=== PATIENT | female | born 1985 | race Caucasian/White ===

== ENCOUNTER 2022-03-12 19:18 | Inpatient (IN) | payer SELFPAY ==
[2022-03-12 19:45] LABS: Hemoglobin 13.5 g/dL (12.0-16.0); Mean Corpuscular HGB CONC 32.4 g/dL (32.0-36.0); Mean Corpuscular Hemoglobin 30.4 pg (27.0-31.0); Mean Platelet Volume 7.3 fL (7.4-10.4); Platelet Count 352 thou/uL (130-400); RBC Distribution Width 13.8 % (11.5-14.5); Red Blood Cell (RBC) Count 4.44 mill/uL (4.20-5.40); White Blood Cell (WBC) Count 21.6 thou/uL (4.8-10.8)
[2022-03-12 19:49] LABS: Analyzer IN Cardio ER; Base Excess -22.4 mEq/L (-2.0 to +3.0); Calcium, Ionized (venous) 1.32 mmol/L (1.16-1.32); Chloride (VBG) 116 mmol/L (98-106); Hemoglobin (Hb) 14.1 g/dL (11.7-15.5); Potassium (VBG) 3.21 mmol/L (3.70-5.30); Sodium 143.2 mmol/L (133-146)
[2022-03-12] MEDS ORDERED: INSULIN REGULAR IN 0.9 % NACL 100 UNIT/100 ML BAG ONE (19:49)
[2022-03-12 19:50] LABS: Actual Bicarbonate (HCO3v) 6 mEq/L (22-28); pH (venous) 7.07 (7.32-7.43)
[2022-03-12 20:03] LABS: Band 7 % (5-11); Burr Cells SLIGHT = 2-5 cells (100X) (0-1/hpf); Lymphocytes 9 % (21-51); MDiff Complete? YES; Monocytes 11 % (0-10); Neutrophil 73 % (42-75); Platelet Morphology Comment Appears Adequate; Polychromasia SLIGHT = 2-3 cells (100X) (0-2/hpf)
[2022-03-12] MEDS ORDERED: D5 1/2 NS w/20 mEq KCL 1,000 ML ONE (20:09)
[2022-03-12 20:11] LABS: ALT (SGPT) 7 U/L (8-55); AST (SGOT) 6 U/L (5-34); Alkaline Phosphatase 59 U/L (40-110); BUN (Urea Nitrogen) 4 mg/dL (7.0-18.7); Bilirubin, Total 0.3 mg/dL (0.2-1.2); Calc. Creatinine Clearance 0 mL/min (70-130); Calcium 8.6 mg/dL (7.8-10.44); Chloride 119 mmol/L (98-107); Globulin 2.6 g/dL (2.4-3.5); Glucose 292 mg/dL (70-105); Potassium 3.1 mmol/L (3.5-5.1); Protein, Total 6.6 g/dL (6.0-8.3); Sodium 142 mmol/L (136-145)
[2022-03-12 20:17] LABS: Carbon Dioxide Less than 8 mmol/L (22-29); Phosphorus Less than 1.0 mg/dL (2.3-4.7)
[2022-03-12] MEDS ORDERED: Potassium Chloride 20 MEQ TAB ONE (20:53)
[2022-03-12] MEDS ORDERED: Sodium Chloride 0.9% 1,000 ML IV PRN ×8 (21:00→22:58)
[2022-03-12] MEDS ORDERED: Dextrose 5% in Water 1,000 ML IV PRN ×2 (21:00→23:00)
[2022-03-12] MEDS ORDERED: Dextrose 5 %-0.45 % NaCl 1,000 ML IV PRN ×2 (21:00→22:58)
[2022-03-12] MEDS ORDERED: NS 0.9% w/ 20 MEQ KCL 1,000 ML/1,000 ML BAG IV PRN ×4 (21:00→22:58)
[2022-03-12] MEDS ORDERED: HUMULIN R 100 UNITS in Sodium Chloride 0.9% 100 ML IVPB SCH ×2 (21:00→23:00)
[2022-03-12] MEDS ORDERED: Dextrose 50% Abboject 50 ML SYRINGE SLOW IVP PRN ×2 (21:00→23:00)
[2022-03-12] MEDS ORDERED: D5 1/2 NS w/20 mEq KCL 1,000 ML IV PRN (21:00)
[2022-03-12] MEDS ORDERED: Insulin Regular 300 UNITS/3 ML VIAL IVP SCH (21:00)
[2022-03-12] MEDS ORDERED: PHOS-NAK 1 PKT PACK PO SCH (21:00)
[2022-03-12] MEDS ORDERED: Electrolyte Replacement Protocol FS PRN (21:00)
[2022-03-12] MEDS ORDERED: Electrolyte Replacement Protocol 1 EACH FS SCH (21:15)
[2022-03-12] MEDS ORDERED: Potassium Phosphate 30 MMOL in Sodium Chloride 0.9% 250 ML 250 ML IVPB SCH (21:30)
[2022-03-12 22:03] LABS: BUN (Urea Nitrogen) 4 mg/dL (7.0-18.7); Calc. Creatinine Clearance 0 mL/min (70-130); Calcium 8.2 mg/dL (7.8-10.44); Chloride 117 mmol/L (98-107); Glucose 299 mg/dL (70-105); Sodium 137 mmol/L (136-145)
[2022-03-12 22:06] LABS: Carbon Dioxide Less than 8 mmol/L (22-29)
[2022-03-12] MEDS ORDERED: Ondansetron ODT 4 MG TAB PO PRN (22:42)
[2022-03-12] MEDS ORDERED: Acetaminophen 650 MG Suppository PR PRN (22:42)
[2022-03-12] MEDS ORDERED: Potassium Chloride 20 MEQ TAB PO SCH (22:45)
[2022-03-12] MEDS: Ondansetron PF 4 MG/2 ML Vial IVP PRN (23:01)
[2022-03-12] MEDS: Potassium Chloride 20 MEQ in Premix Bag 1 BAG IVPB SCH (23:54)
[2022-03-13] MEDS: Potassium Chloride 20 MEQ in Premix Bag 1 BAG IVPB SCH (01:48)
[2022-03-13] MEDS: D5 1/2 NS w/20 mEq KCL 1,000 ML IV PRN ×2 (02:33→06:07)
[2022-03-13 03:42] LABS: Hemoglobin A1c 11.6 % (4.0-6.0)
[2022-03-13 03:51] LABS: Anion Gap 9 mmol/L (10-20); BUN (Urea Nitrogen) Less than 4 mg/dL (7.0-18.7); Calc. Creatinine Clearance 100 mL/min (70-130); Calcium 8.2 mg/dL (7.8-10.44); Carbon Dioxide 12 mmol/L (22-29); Chloride 120 mmol/L (98-107); Glucose 256 mg/dL (70-105); Magnesium 1.6 mg/dL (1.6-2.6); Phosphorus 1.1 mg/dL (2.3-4.7); Potassium 3.5 mmol/L (3.5-5.1); Sodium 137 mmol/L (136-145)
[2022-03-13 04:05] LABS: Hemoglobin 11.8 g/dL (12.0-16.0); Mean Corpuscular HGB CONC 33.1 g/dL (32.0-36.0); Mean Corpuscular Hemoglobin 30.4 pg (27.0-31.0); Mean Corpuscular Volume 91.7 fL (78.0-98.0); Mean Platelet Volume 7.2 fL (7.4-10.4); Platelet Count 283 thou/uL (130-400); RBC Distribution Width 13.6 % (11.5-14.5); Red Blood Cell (RBC) Count 3.89 mill/uL (4.20-5.40); White Blood Cell (WBC) Count 17.8 thou/uL (4.8-10.8)
[2022-03-13] MEDS ORDERED: Potassium Phosphate 22 MMOL in Sodium Chloride 0.9% 250 ML 250 ML IVPB SCH (04:30)
[2022-03-13] MEDS ORDERED: Magnesium 2 GM/50 ML(in water) 2 GM in Premix Bag 1 BAG IVPB SCH (04:30)
[2022-03-13] MEDS ORDERED: Potassium Chloride 20 MEQ in Premix Bag 1 BAG IVPB SCH (04:30)
[2022-03-13 04:45] LABS: Band 15 % (5-11); Lymphocytes 9 % (21-51); MDiff Complete? YES; Monocytes 8 % (0-10); Neutrophil 68 % (42-75)
[2022-03-13 07:50] LABS: Anion Gap 8 mmol/L (10-20); BUN (Urea Nitrogen) Less than 4 mg/dL (7.0-18.7); Calc. Creatinine Clearance 106 mL/min (70-130); Calcium 8.4 mg/dL (7.8-10.44); Carbon Dioxide 12 mmol/L (22-29); Chloride 121 mmol/L (98-107); Glucose 187 mg/dL (70-105); Potassium 3.4 mmol/L (3.5-5.1); Sodium 138 mmol/L (136-145)
[2022-03-13] MEDS ORDERED: Potassium Chloride 20 MEQ TAB PO SCH (08:45)
[2022-03-13] MEDS: Enoxaparin Sodium 40 MG/0.4 ML SYRINGE SC SCH (09:28)
[2022-03-13] MEDS ORDERED: Sodium Chloride 0.9% 1,000 ML IV SCH (10:45)
[2022-03-13] MEDS ORDERED: Dextrose 50% Abboject 50 ML SYRINGE IVP PRN (10:45)
[2022-03-13] MEDS ORDERED: Dextrose 5% in Water 1,000 ML IV PRN (10:45)
[2022-03-13] MEDS ORDERED: Insulin Glargine 30 UNITS/0.3 ML VIAL SC SCH (10:45)
[2022-03-13 11:39] LABS: Anion Gap 12 mmol/L (10-20); BUN (Urea Nitrogen) Less than 4 mg/dL (7.0-18.7); Calc. Creatinine Clearance 113 mL/min (70-130); Calcium 8.1 mg/dL (7.8-10.44); Carbon Dioxide 8 mmol/L (22-29); Chloride 120 mmol/L (98-107); Glucose 133 mg/dL (70-105); Potassium 4.7 mmol/L (3.5-5.1); Sodium 135 mmol/L (136-145)
[2022-03-13] MEDS: Acetaminophen 325 MG TAB PO PRN ×3 (13:12→21:38)
[2022-03-13] MEDS ORDERED: Ketorolac Tromethamine 30 MG/ML VIAL IVP SCH (13:45)
[2022-03-13 13:47] VITALS: BMI 25.1
[2022-03-13] MEDS: Ondansetron PF 4 MG/2 ML Vial IVP PRN (17:18)
[2022-03-13] MEDS ORDERED: Lidocaine 5% Patch TD SCH (18:00)
[2022-03-13] MEDS: HumaLOG 300 UNITS/3 ML VIAL SC PRN ×2 (18:15→21:15)
[2022-03-14] MEDS ORDERED: Transdermal Patch Removal TOP SCH (06:00)
[2022-03-14] MEDS: Ondansetron PF 4 MG/2 ML Vial IVP PRN (06:01)
[2022-03-14] MEDS: Acetaminophen 325 MG TAB PO PRN (06:14)
[2022-03-14 06:17] LABS: #Lymphocytes 2.1 thou/uL (1.20-3.40); #Monocytes 0.8 thou/uL (0.11-0.59); #Neutrophils 5.2 thou/uL (1.40-6.50); %Basophils 0.5 % (0.0-1.0); %Eosinophils 0.5 % (0.0-10.0); %Lymphocytes 25.5 % (21.0-51.0); %Monocytes 9.7 % (0.0-10.0); %Neutrophils 63.7 % (42.0-75.0); Hemoglobin 11.8 g/dL (12.0-16.0); Mean Corpuscular HGB CONC 34.1 g/dL (32.0-36.0); Mean Corpuscular Hemoglobin 31.4 pg (27.0-31.0); Mean Platelet Volume 8.4 fL (7.4-10.4); Platelet Count 228 thou/uL (130-400); RBC Distribution Width 14.3 % (11.5-14.5); Red Blood Cell (RBC) Count 3.77 mill/uL (4.20-5.40); White Blood Cell (WBC) Count 8.1 thou/uL (4.8-10.8)
[2022-03-14 06:32] LABS: Anion Gap 12 mmol/L (10-20); BUN (Urea Nitrogen) Less than 4 mg/dL (7.0-18.7); Calc. Creatinine Clearance 131 mL/min (70-130); Carbon Dioxide 15 mmol/L (22-29); Chloride 110 mmol/L (98-107); Glucose 148 mg/dL (70-105); Sodium 134 mmol/L (136-145)
[2022-03-14 06:46] LABS: Potassium 2.9 mmol/L (3.5-5.1)
[2022-03-14] MEDS: Enoxaparin Sodium 40 MG/0.4 ML SYRINGE SC SCH (08:40)
[2022-03-14] MEDS: Potassium Chloride 20 MEQ TAB PO SCH ×2 (08:40→12:40)
[2022-03-14] MEDS ORDERED: Insulin Glargine 30 UNITS/0.3 ML VIAL SC SCH (09:00)
[2022-03-14] MEDS ORDERED: Potassium Chloride 20 MEQ TAB PO SCH (10:00)
[2022-03-14] MEDS: HumaLOG 300 UNITS/3 ML VIAL SC PRN (12:39)
[2022-03-14] MEDS ORDERED: Polyethylene Glycol 3350 17 GM Packet PO SCH (15:15)
[2022-03-14 16:48] VITALS: BP 118/80; TEMP 98.3
== END 2022-03-14 18:28 | disposition home or self-care (01) | DRG 639 ==
LOC: ERS 19:18 → CCU 20:35 → T4-A 03-13 13:54
PROVIDERS: ADMIT Internal Medicine; ATTEND Internal Medicine
DX: E11.10 Type 2 diabetes mellitus with ketoacidosis without coma (principal); Z20.822 Contact with and (suspected) exposure to COVID-19; E83.39 Other disorders of phosphorus metabolism; E83.42 Hypomagnesemia; F17.210 Nicotine dependence, cigarettes, uncomplicated; E87.6 Hypokalemia
CPT/HCPCS: 36415; 36416; 80048; 82010; 82805; 83036; 83735; 84100; 85025; 96365; 96366; 96375; J1650; J1815; J1885; J2405; J3475; J3480; J3490; J7050; Q0162

== ENCOUNTER 2022-10-13 01:56 | Inpatient (IN) | payer SELFPAY ==
[2022-10-13 02:44] LABS: Bacteria/HPF None Seen HPF (None Seen); Bilirubin Negative (Negative); Blood, Urine 2+ (Negative); Clarity Clear (Clear); Glucose, Urine (Dipstick) Greater than 1000 mg/dL (Negative); Ketone, Urine Greater than 150 mg/dL (Negative); Leukocyte Negative Leu/uL (Negative); Nitrite Negative (Negative); Protein, Urine (Dipstick) 50 mg/dL (Neg-Trace); RBC/HPF 0-3 HPF (0-3); Specific Gravity, Urine 1.017 (1.002-1.036); Squamous Epithelial 0-3 HPF (0-3); Urobilinogen Normal mg/dL (Less than 2); WBC/HPF 0-3 HPF (0-3)
[2022-10-13] MEDS ORDERED: Acetaminophen 325 MG TAB PO PRN (03:14)
[2022-10-13] MEDS ORDERED: Sodium Chloride 0.9% 1,000 ML IV PRN ×4 (03:14)
[2022-10-13] MEDS ORDERED: Electrolyte Replacement Protocol 1 EACH IVPB ONE (03:14)
[2022-10-13] MEDS ORDERED: Dextrose 5 %-0.45 % NaCl 1,000 ML IV PRN (03:14)
[2022-10-13] MEDS ORDERED: NS 0.9% w/ 20 MEQ KCL 1,000 ML IV PRN ×2 (03:14)
[2022-10-13] MEDS ORDERED: HUMULIN R 100 UNITS in Sodium Chloride 0.9% 100 ML IVPB SCH (03:15)
[2022-10-13 03:25] LABS: Hemoglobin 14.8 g/dL (12.0-16.0); Mean Corpuscular HGB CONC 31.6 g/dL (32.0-36.0); Mean Corpuscular Hemoglobin 30.2 pg (27.0-31.0); Mean Corpuscular Volume 95.6 fl (78.0-98.0); Mean Platelet Volume 7.6 fL (7.4-10.4); Platelet Count 389 10x3/uL (130-400); RBC Distribution Width 14.8 % (11.5-14.5)
[2022-10-13 03:29] LABS: ALT (SGPT) 46 U/L (8-55); AST (SGOT) 41 U/L (5-34); Albumin 4.9 g/dL (3.5-5.0); Alkaline Phosphatase 65 U/L (40-110); BUN (Urea Nitrogen) 14 mg/dL (7.0-18.7); Bilirubin, Total 0.2 mg/dL (0.2-1.2); Calc. Creatinine Clearance 0 mL/min (70-130); Calcium 9.2 mg/dL (7.8-10.44); Chloride 112 mmol/L (98-107); Estimated GFR 43; Globulin 3.7 g/dL (2.4-3.5); Glucose 229 mg/dL (70-105); Potassium 4.4 mmol/L (3.5-5.1); Protein, Total 8.6 g/dL (6.0-8.3); Sodium 137 mmol/L (136-145)
[2022-10-13] MEDS ORDERED: Electrolyte Replacement Protocol FS PRN (03:30)
[2022-10-13 03:32] LABS: Carbon Dioxide Less than 8 mmol/L (22-29)
[2022-10-13 03:45] LABS: Hemoglobin A1c Greater than 14.0 % (4.0-6.0)
[2022-10-13 03:46] LABS: Magnesium 2.2 mg/dL (1.6-2.6); Phosphorus 2.8 mg/dL (2.3-4.7)
[2022-10-13 04:11] LABS: Anisocytosis SLIGHT = 6-15 cells (100X) (0-5/hpf); Band 8 % (5-11); Hypochromia SLIGHT = 6-15 cells (100X) (0-5/hpf); Lymphocytes 23 % (21-51); MDiff Complete? YES; Monocytes 5 % (0-10); Neutrophil 63 % (42-75); Platelet Morphology Comment Appears Adequate; White Blood Cell (WBC) Count 24.6 10x3/uL (4.8-10.8)
[2022-10-13] MEDS: D5 1/2 NS w/20 mEq KCL 1,000 ML IV PRN ×5 (05:20→21:23)
[2022-10-13] MEDS: Ondansetron PF 4 MG/2 ML Vial IVP PRN ×3 (05:44→21:23)
[2022-10-13 06:28] LABS: Amphetamine Not Detected (NotDetected); Barbiturates Screen Not Detected (NotDetected); Benzodiazepine Screen Not Detected (NotDetected); Cocaine Metabolite Screen Not Detected (NotDetected); Methadone Not Detected (NotDetected); Methamphetamine Not Detected (NotDetected); Opiate Screen Not Detected (NotDetected); Oxycodone Screen Not Detected (NotDetected); Phencyclidine (PCP) Not Detected (NotDetected); THC/Cannabinoid Screen Detected (NotDetected); Tricyclic Screen Not Detected (NotDetected)
[2022-10-13 07:05] LABS: Anion Gap 18 mmol/L (10-20); BUN (Urea Nitrogen) 11 mg/dL (7.0-18.7); Calc. Creatinine Clearance 26 mL/min (70-130); Calcium 8.3 mg/dL (7.8-10.44); Chloride 111 mmol/L (98-107); Estimated GFR 64; Glucose 222 mg/dL (70-105); Potassium 3.5 mmol/L (3.5-5.1); Sodium 134 mmol/L (136-145)
[2022-10-13 07:10] LABS: Carbon Dioxide 9 mmol/L (22-29)
[2022-10-13] MEDS ORDERED: Sodium Bicarb 50 MEQ/50 ML VIAL IVP SCH (07:30)
[2022-10-13] MEDS: Enoxaparin Sodium 40 MG/0.4 ML SYRINGE SC SCH (08:09)
[2022-10-13 08:31] LABS: Base Excess (BEa) -11.5 mEq/L (-2.0 to +3.0); Calcium, Ionized (arterial) 1.26 mmol/L (1.12-1.30); Carboxyhemoglobin (COHb) 0.5 gm% (0.0-3.0); Hemoglobin (Hb) 12.5 g/dL (12.0-16.0); Potassium - ABG Lab 3.47 mmol/L (3.70-5.30); pH, Arterial 7.34 (7.35-7.45)
[2022-10-13 08:33] LABS: Actual Bicarbonate (HCO3a) 12.5 mEq/L (22-28)
[2022-10-13 08:34] LABS: Puncture Site RRA
[2022-10-13] MEDS ORDERED: Famotidine/PF 20 mg/2ml Vial SLOW IVP SCH (09:00)
[2022-10-13 10:36] LABS: Calcium 8.4 mg/dL (7.8-10.44); Chloride 112 mmol/L (98-107); Potassium 3.4 mmol/L (3.5-5.1); Sodium 132 mmol/L (136-145)
[2022-10-13 10:37] LABS: Glucose 218 mg/dL (70-105)
[2022-10-13 10:38] LABS: Anion Gap 10 mmol/L (10-20); Carbon Dioxide 13 mmol/L (22-29)
[2022-10-13 10:40] LABS: Calc. Creatinine Clearance 32 mL/min (70-130); Estimated GFR 80
[2022-10-13 10:41] LABS: BUN (Urea Nitrogen) 9 mg/dL (7.0-18.7)
[2022-10-13 12:16] LABS: Potassium 3.4 mmol/L (3.5-5.1)
[2022-10-13] MEDS: Potassium Chloride 20 MEQ in Premix Bag 1 BAG IVPB SCH (12:26)
[2022-10-13] MEDS ORDERED: Potassium Chloride 20 MEQ in Premix Bag 1 BAG IVPB SCH (13:00)
[2022-10-13 15:18] LABS: Anion Gap 7 mmol/L (10-20); BUN (Urea Nitrogen) 7 mg/dL (7.0-18.7); Calc. Creatinine Clearance 36 mL/min (70-130); Calcium 8.4 mg/dL (7.8-10.44); Carbon Dioxide 16 mmol/L (22-29); Chloride 112 mmol/L (98-107); Estimated GFR 94; Glucose 182 mg/dL (70-105); Lipase 73 U/L (8-78); Potassium 3.2 mmol/L (3.5-5.1); Sodium 132 mmol/L (136-145)
[2022-10-13] MEDS ORDERED: Potassium Phosphate 30 MMOL in Sodium Chloride 0.9% 500 ML IVPB SCH (16:00)
[2022-10-13 23:53] LABS: Phosphorus 1.9 mg/dL (2.3-4.7); Potassium 3.6 mmol/L (3.5-5.1)
[2022-10-14] MEDS: D5 1/2 NS w/20 mEq KCL 1,000 ML IV PRN ×2 (02:05→05:38)
[2022-10-14 04:22] LABS: #Lymphocytes 2.7 thou/uL (1.20-3.40); #Monocytes 0.8 thou/uL (0.11-0.59); #Neutrophils 5.9 thou/uL (1.40-6.50); %Basophils 0.4 % (0.0-1.0); %Eosinophils 0.4 % (0.0-10.0); %Lymphocytes 28.6 % (21.0-51.0); %Monocytes 8.6 % (0.0-10.0); %Neutrophils 62.1 % (42.0-75.0); Hemoglobin 11.7 g/dL (12.0-16.0); Mean Corpuscular HGB CONC 31.6 g/dL (32.0-36.0); Mean Corpuscular Hemoglobin 29.4 pg (27.0-31.0); Mean Platelet Volume 7.5 fL (7.4-10.4); Platelet Count 266 10x3/uL (130-400); RBC Distribution Width 14.9 % (11.5-14.5); Red Blood Cell (RBC) Count 3.98 mill/uL (4.20-5.40); White Blood Cell (WBC) Count 9.4 10x3/uL (4.8-10.8)
[2022-10-14 04:45] LABS: Phosphorus 1.5 mg/dL (2.3-4.7)
[2022-10-14 05:09] LABS: ALT (SGPT) 32 U/L (8-55); AST (SGOT) 40 U/L (5-34); Albumin 3.1 g/dL (3.5-5.0); Alkaline Phosphatase 43 U/L (40-110); Anion Gap 10 mmol/L (10-20); BUN (Urea Nitrogen) Less than 4 mg/dL (7.0-18.7); Bilirubin, Total 0.2 mg/dL (0.2-1.2); Calc. Creatinine Clearance 42 mL/min (70-130); Carbon Dioxide 12 mmol/L (22-29); Chloride 113 mmol/L (98-107); Estimated GFR 114; Globulin 2.5 g/dL (2.4-3.5); Glucose 237 mg/dL (70-105); Magnesium 1.6 mg/dL (1.6-2.6); Potassium 3.5 mmol/L (3.5-5.1); Protein, Total 5.6 g/dL (6.0-8.3); Sodium 131 mmol/L (136-145)
[2022-10-14] MEDS ORDERED: Potassium Phosphate 22 MMOL in Sodium Chloride 0.9% 250 ML 250 ML IVPB SCH (05:30)
[2022-10-14] MEDS: Ondansetron PF 4 MG/2 ML Vial IVP PRN ×2 (05:36→10:30)
[2022-10-14] MEDS ORDERED: Dextrose 5% in Water 1,000 ML IV PRN ×2 (08:37→12:13)
[2022-10-14] MEDS ORDERED: Dextrose 50% Abboject 50 ML SYRINGE SLOW IVP PRN ×2 (08:37→12:13)
[2022-10-14] MEDS ORDERED: HumaLOG 300 UNITS/3 ML VIAL SC PRN (08:37)
[2022-10-14] MEDS: Enoxaparin Sodium 40 MG/0.4 ML SYRINGE SC SCH (08:52)
[2022-10-14] MEDS: Famotidine 20 MG TAB PO SCH ×2 (08:52→20:49)
[2022-10-14] MEDS ORDERED: Magnesium 2 GM/50 ML(in water) 2 GM in Premix Bag 1 BAG IVPB SCH (09:00)
[2022-10-14] MEDS ORDERED: Potassium Chloride 8 MEQ in Sodium Chloride 0.9% 100 ML IVPB SCH (09:00)
[2022-10-14] MEDS ORDERED: HumuLIN 70/30 (300 UNITS/3 ML VIAL) SC SCH (09:00)
[2022-10-14] MEDS: HumuLIN 70/30 (300 UNITS/3 ML VIAL) SC SCH ×2 (11:37→16:54)
[2022-10-14] MEDS ORDERED: Insulin Regular 300 UNITS/3 ML VIAL SC PRN (12:13)
[2022-10-15 06:45] LABS: #Basophils 0.1 thou/uL (0.0-0.2); #Eosinphils 0.1 thou/uL (0.0-0.7); #Lymphocytes 3.3 thou/uL (1.20-3.40); #Monocytes 0.7 thou/uL (0.11-0.59); #Neutrophils 3.3 thou/uL (1.40-6.50); %Basophils 1.1 % (0.0-1.0); %Eosinophils 0.9 % (0.0-10.0); %Lymphocytes 44.4 % (21.0-51.0); %Monocytes 9.4 % (0.0-10.0); %Neutrophils 44.2 % (42.0-75.0); Hemoglobin 12.4 g/dL (12.0-16.0); Mean Corpuscular HGB CONC 31.5 g/dL (32.0-36.0); Mean Corpuscular Hemoglobin 29.1 pg (27.0-31.0); Mean Corpuscular Volume 92.3 fl (78.0-98.0); Mean Platelet Volume 7.6 fL (7.4-10.4); Platelet Count 305 10x3/uL (130-400); RBC Distribution Width 15.2 % (11.5-14.5); Red Blood Cell (RBC) Count 4.27 mill/uL (4.20-5.40); White Blood Cell (WBC) Count 7.4 10x3/uL (4.8-10.8)
[2022-10-15 07:03] LABS: ALT (SGPT) 47 U/L (8-55); AST (SGOT) 52 U/L (5-34); Albumin 3.3 g/dL (3.5-5.0); Alkaline Phosphatase 53 U/L (40-110); Anion Gap 11 mmol/L (10-20); BUN (Urea Nitrogen) Less than 4 mg/dL (7.0-18.7); Bilirubin, Total 0.4 mg/dL (0.2-1.2); Calc. Creatinine Clearance 39 mL/min (70-130); Calcium 8.5 mg/dL (7.8-10.44); Carbon Dioxide 23 mmol/L (22-29); Chloride 107 mmol/L (98-107); Estimated GFR 103; Globulin 2.6 g/dL (2.4-3.5); Glucose 243 mg/dL (70-105); Magnesium 1.9 mg/dL (1.6-2.6); Potassium 3.4 mmol/L (3.5-5.1); Protein, Total 5.9 g/dL (6.0-8.3); Sodium 138 mmol/L (136-145)
[2022-10-15 07:12] LABS: Phosphorus 3.1 mg/dL (2.3-4.7)
[2022-10-15] MEDS: Famotidine 20 MG TAB PO SCH (08:27)
[2022-10-15] MEDS: Enoxaparin Sodium 40 MG/0.4 ML SYRINGE SC SCH (08:28)
[2022-10-15] MEDS: HumuLIN 70/30 (300 UNITS/3 ML VIAL) SC SCH ×2 (08:28→12:03)
[2022-10-15] MEDS ORDERED: Enoxaparin Sodium 30 MG/0.3 ML SYRINGE SC SCH (09:00)
[2022-10-15] MEDS ORDERED: Famotidine 20 MG TAB PO SCH (09:00)
[2022-10-15] MEDS ORDERED: Magnesium 2 GM/50 ML(in water) 2 GM in Premix Bag 1 BAG IVPB SCH (09:00)
[2022-10-15] MEDS ORDERED: Potassium Chloride 20 MEQ TAB PO SCH (09:00)
[2022-10-15 14:58] VITALS: BP 121/81; TEMP 97.7
[2022-10-16] MEDS ORDERED: FLU VACC QS2022-23(6MOS UP)/PF 60 MCG/0.5 ML SYRINGE IM ONE (09:00)
== END 2022-10-15 15:00 | disposition home or self-care (01) | DRG 638 ==
LOC: ERS 01:56 → ERHOLD 02:59 → CCU 04:56 → T4-A 10-14 14:06
PROVIDERS: ADMIT Internal Medicine; ATTEND Internal Medicine
DX: E10.10 Type 1 diabetes mellitus with ketoacidosis without coma (principal); N17.9 Acute kidney failure, unspecified; I10 Essential (primary) hypertension; F12.10 Cannabis abuse, uncomplicated; E10.42 Type 1 diabetes mellitus with diabetic polyneuropathy; F17.210 Nicotine dependence, cigarettes, uncomplicated; E87.5 Hyperkalemia; D72.829 Elevated white blood cell count, unspecified; Z71.6 Tobacco abuse counseling; Z79.899 Other long term (current) drug therapy; Z79.4 Long term (current) use of insulin; Z98.51 Tubal ligation status; Z98.890 Other specified postprocedural states; Z71.51 Drug abuse counseling and surveillance of drug abuser
CPT/HCPCS: 36415; 36416; 36600; 80053; 80306; 81003; 81015; 82805; 83036; 83690; 83735; 84100; 85025; 99285; J1650; J1815; J2405; J3475; J3480; J3490; J7030; J7050; S0028

== ENCOUNTER 2022-11-17 10:27 | Inpatient (IN) | payer SELFPAY ==
[2022-11-17] MEDS ORDERED: Ondansetron PF 4 MG/2 ML Vial ONE ×2 (11:05→11:42)
[2022-11-17 11:16] LABS: Hemoglobin 15.4 g/dL (12.0-16.0); Mean Corpuscular HGB CONC 30.8 g/dL (32.0-36.0); Mean Corpuscular Hemoglobin 29.5 pg (27.0-31.0); Mean Corpuscular Volume 95.6 fl (78.0-98.0); Platelet Count 582 10x3/uL (130-400); RBC Distribution Width 14.3 % (11.5-14.5); Red Blood Cell (RBC) Count 5.22 mill/uL (4.20-5.40); White Blood Cell (WBC) Count 28.7 10x3/uL (4.8-10.8)
[2022-11-17 11:19] LABS: Base Excess -24.3 mEq/L (-2.0 to +3.0); Calcium, Ionized (venous) 1.24 mmol/L (1.16-1.32); Chloride (VBG) 104 mmol/L (98-106); Hemoglobin (Hb) 16.4 g/dL (11.7-15.5); Potassium (VBG) 5.36 mmol/L (3.70-5.30); Sodium 139.1 mmol/L (133-146)
[2022-11-17 11:20] LABS: Actual Bicarbonate (HCO3v) 4 mEq/L (22-28); pH (venous) 7.05 (7.32-7.43)
[2022-11-17 11:27] LABS: BHCG - Serum Negative (NEGATIVE); Pregs Control Background? CLEAR/WHITE (CLR/WHITE); Pregs Control Bar Appear? YES (CONTROL BAR)
[2022-11-17 11:29] LABS: Magnesium 2.5 mg/dL (1.6-2.6)
[2022-11-17 11:31] LABS: ALT (SGPT) 25 U/L (8-55); AST (SGOT) 37 U/L (5-34); Albumin 5.4 g/dL (3.5-5.0); Alkaline Phosphatase 80 U/L (40-110); BUN (Urea Nitrogen) 15 mg/dL (7.0-18.7); Bilirubin, Total 0.2 mg/dL (0.2-1.2); Calc. Creatinine Clearance 0 mL/min (70-130); Calcium 10.2 mg/dL (7.8-10.44); Chloride 103 mmol/L (98-107); Estimated GFR 44; Globulin 4.3 g/dL (2.4-3.5); Lipase 25 U/L (8-78); Phosphorus 6.7 mg/dL (2.3-4.7); Potassium 5.2 mmol/L (3.5-5.1); Protein, Total 9.7 g/dL (6.0-8.3); Sodium 136 mmol/L (136-145)
[2022-11-17] MEDS ORDERED: Morphine 4 MG/ML VIAL ONE (11:42)
[2022-11-17] MEDS ORDERED: Pantoprazole 40 MG VIAL ONE (11:42)
[2022-11-17 11:47] LABS: Band 30 % (5-11); Lymphocytes 11 % (21-51); MDiff Complete? YES; Monocytes 4 % (0-10); Neutrophil 55 % (42-75); Platelet Morphology Comment Appears Increased; RBC Morphology Normal
[2022-11-17 11:51] LABS: Carbon Dioxide Less than 8 mmol/L (22-29); Glucose 536 mg/dL (70-105)
[2022-11-17] MEDS ORDERED: INSULIN REGULAR IN 0.9 % NACL 100 UNIT/100 ML BAG ONE (11:59)
[2022-11-17 13:09] LABS: Bacteria/HPF None Seen HPF (None Seen); Bilirubin Negative (Negative); Blood, Urine Trace (Negative); Clarity Clear (Clear); Glucose, Urine (Dipstick) Greater than 1000 mg/dL (Negative); Ketone, Urine Greater than 150 mg/dL (Negative); Leukocyte Negative Leu/uL (Negative); Nitrite Negative (Negative); Protein, Urine (Dipstick) 30 mg/dL (Neg-Trace); RBC/HPF 0-3 HPF (0-3); Specific Gravity, Urine 1.023 (1.002-1.036); Squamous Epithelial 0-3 HPF (0-3); Urobilinogen Normal mg/dL (Less than 2); WBC/HPF 0-3 HPF (0-3)
[2022-11-17] MEDS ORDERED: Sodium Chloride 0.9% 1,000 ML IV PRN ×4 (13:34)
[2022-11-17] MEDS ORDERED: NS 0.9% w/ 20 MEQ KCL 1,000 ML IV PRN ×2 (13:34)
[2022-11-17] MEDS ORDERED: Dextrose 5 %-0.45 % NaCl 1,000 ML IV PRN (13:34)
[2022-11-17] MEDS ORDERED: Electrolyte Replacement Protocol 1 EACH IVPB SCH (13:34)
[2022-11-17] MEDS ORDERED: HUMULIN R 100 UNITS in Sodium Chloride 0.9% 100 ML IVPB SCH (13:45)
[2022-11-17] MEDS ORDERED: Cefepime 2 GM VIAL ONE (13:56)
[2022-11-17 14:23] LABS: Lactic Acid 2.7 mmol/L (0.5-2.2)
[2022-11-17 14:31] LABS: Troponin I Less than 0.010 ng/mL (< 0.028)
[2022-11-17 15:06] LABS: SARS-CoV-2 NAA Rapid Test Not Detected (NotDetected)
[2022-11-17 15:34] LABS: ALT (SGPT) 16 U/L (8-55); AST (SGOT) 24 U/L (5-34); Albumin 4.3 g/dL (3.5-5.0); Alkaline Phosphatase 59 U/L (40-110); BUN (Urea Nitrogen) 11 mg/dL (7.0-18.7); Bilirubin, Total Less than 0.2 mg/dL (0.2-1.2); Calc. Creatinine Clearance 0 mL/min (70-130); Calcium 8.1 mg/dL (7.8-10.44); Carbon Dioxide Less than 8 mmol/L (22-29); Chloride 118 mmol/L (98-107); Estimated GFR 67; Globulin 3.1 g/dL (2.4-3.5); Glucose 229 mg/dL (70-105); Potassium 4.9 mmol/L (3.5-5.1); Protein, Total 7.4 g/dL (6.0-8.3); Sodium 139 mmol/L (136-145)
[2022-11-17] MEDS ORDERED: Vancomycin 1 GM/200 ML (FROZEN) BAG ONE (15:49)
[2022-11-17] MEDS ORDERED: Morphine 2 MG/ML VIAL SLOW IVP PRN (15:54)
[2022-11-17] MEDS ORDERED: Dextrose 50% Abboject 50 ML SYRINGE ONE (16:38)
[2022-11-17 18:02] LABS: Anion Gap 16 mmol/L (10-20); BUN (Urea Nitrogen) 9 mg/dL (7.0-18.7); Calc. Creatinine Clearance 0 mL/min (70-130); Calcium 7.8 mg/dL (7.8-10.44); Chloride 113 mmol/L (98-107); Estimated GFR 67; Glucose 288 mg/dL (70-105); Potassium 4.4 mmol/L (3.5-5.1); Sodium 133 mmol/L (136-145)
[2022-11-17 18:04] LABS: Carbon Dioxide 8 mmol/L (22-29)
[2022-11-17 18:08] LABS: Troponin I Less than 0.010 ng/mL (< 0.028)
[2022-11-17] MEDS: D5 1/2 NS w/20 mEq KCL 1,000 ML IV PRN ×2 (18:14→22:27)
[2022-11-17] MEDS: cefTRIAXone\\ROCEPHIN 1 GM in Sodium Chloride 0.9% 100 ML IVPB SCH (18:14)
[2022-11-17] MEDS: Promethazine HCl 12.5 MG in Sodium Chloride 0.9% 50 ML IVPB PRN (20:04)
[2022-11-17 22:38] LABS: Anion Gap 11 mmol/L (10-20); BUN (Urea Nitrogen) 6 mg/dL (7.0-18.7); Calc. Creatinine Clearance 75 mL/min (70-130); Calcium 7.9 mg/dL (7.8-10.44); Carbon Dioxide 13 mmol/L (22-29); Chloride 111 mmol/L (98-107); Estimated GFR 87; Glucose 245 mg/dL (70-105); Potassium 3.6 mmol/L (3.5-5.1); Sodium 131 mmol/L (136-145)
[2022-11-18] MEDS: D5 1/2 NS w/20 mEq KCL 1,000 ML IV PRN ×2 (02:08→06:12)
[2022-11-18 07:41] LABS: Anion Gap 8 mmol/L (10-20); BUN (Urea Nitrogen) 4 mg/dL (7.0-18.7); Calc. Creatinine Clearance 96 mL/min (70-130); Calcium 8.1 mg/dL (7.8-10.44); Carbon Dioxide 17 mmol/L (22-29); Chloride 110 mmol/L (98-107); Estimated GFR 114; Glucose 162 mg/dL (70-105); Potassium 3.2 mmol/L (3.5-5.1); Sodium 132 mmol/L (136-145)
[2022-11-18] MEDS: Promethazine HCl 12.5 MG in Sodium Chloride 0.9% 50 ML IVPB PRN ×2 (08:04→21:58)
[2022-11-18] MEDS ORDERED: Potassium Chloride 20 MEQ TAB PO SCH (09:00)
[2022-11-18] MEDS ORDERED: HumuLIN 70/30 (300 UNITS/3 ML VIAL) SC SCH (11:15)
[2022-11-18 13:14] VITALS: BMI 20.8
[2022-11-18] MEDS ORDERED: Iopamidol-370 76% 500 ML 1 ML ONE (13:14)
[2022-11-18 15:51] LABS: Anion Gap 10 mmol/L (10-20); BUN (Urea Nitrogen) Less than 4 mg/dL (7.0-18.7); Calc. Creatinine Clearance 92 mL/min (70-130); Carbon Dioxide 19 mmol/L (22-29); Chloride 107 mmol/L (98-107); Estimated GFR 108; Glucose 157 mg/dL (70-105); Potassium 3.5 mmol/L (3.5-5.1); Sodium 132 mmol/L (136-145)
[2022-11-18] MEDS: cefTRIAXone\\ROCEPHIN 1 GM in Sodium Chloride 0.9% 100 ML IVPB SCH (16:33)
[2022-11-18] MEDS ORDERED: Dextrose 50% Abboject 50 ML SYRINGE IVP PRN (17:30)
[2022-11-18] MEDS ORDERED: Dextrose 5% in Water 1,000 ML IV PRN (17:30)
[2022-11-18] MEDS ORDERED: Insulin Regular 300 UNITS/3 ML VIAL SC PRN (17:30)
[2022-11-18] MEDS: HumuLIN 70/30 (300 UNITS/3 ML VIAL) SC SCH (20:02)
[2022-11-19 06:33] LABS: Anion Gap 14 mmol/L (10-20); BUN (Urea Nitrogen) 5 mg/dL (7.0-18.7); Calc. Creatinine Clearance 92 mL/min (70-130); Calcium 8.3 mg/dL (7.8-10.44); Carbon Dioxide 17 mmol/L (22-29); Chloride 108 mmol/L (98-107); Estimated GFR 105; Glucose 265 mg/dL (70-105); Potassium 3.7 mmol/L (3.5-5.1); Sodium 135 mmol/L (136-145)
[2022-11-19] MEDS: HumuLIN 70/30 (300 UNITS/3 ML VIAL) SC SCH (09:02)
[2022-11-19] MEDS: Promethazine HCl 12.5 MG in Sodium Chloride 0.9% 50 ML IVPB PRN (13:12)
[2022-11-19] MEDS: cefTRIAXone\\ROCEPHIN 1 GM in Sodium Chloride 0.9% 100 ML IVPB SCH (13:12)
[2022-11-19 16:25] VITALS: TEMP 98.6
== END 2022-11-19 20:25 | disposition home or self-care (01) | DRG 638 ==
LOC: ERS 10:27 → ERHOLD 13:07 → IMCU/EMU 17:47
PROVIDERS: ADMIT Internal Medicine; ATTEND Hospitalist
DX: E10.10 Type 1 diabetes mellitus with ketoacidosis without coma (principal); N17.9 Acute kidney failure, unspecified; Z20.822 Contact with and (suspected) exposure to COVID-19; F17.210 Nicotine dependence, cigarettes, uncomplicated; Z79.4 Long term (current) use of insulin; Z79.899 Other long term (current) drug therapy; Z98.51 Tubal ligation status
CPT/HCPCS: 36415; 36416; 71045; 74177; 76705; 80048; 80053; 81003; 81015; 82010; 82805; 83605; 83690; 83735; 84100; 84484; 84703; 85025; 87040; 87086; 93005; C9113; J0692; J0696; J1815; J2270; J2272; J2405; J2550; J3370-JW; J3480; J3490; J7999; Q9967

== ENCOUNTER 2023-10-17 17:06 | Inpatient (IN) | payer OTHER, SELFPAY ==
[2023-10-17] MEDS ORDERED: Ondansetron PF 4 MG/2 ML Vial ONE (17:41)
[2023-10-17 17:45] LABS: Hematocrit 46.7 % (36.0-47.0); Hemoglobin 14.3 g/dL (12.0-16.0); Manual Diff?? YES; Mean Corpuscular HGB CONC 30.6 g/dL (32.0-36.0); Mean Corpuscular Hemoglobin 30.9 pg (27.0-31.0); Mean Corpuscular Volume 100.9 fl (78.0-98.0); Mean Platelet Volume 9.5 fL (7.4-10.4); Platelet Count 535 10x3/uL (130-400); RBC Distribution Width 13.3 % (11.5-14.5); Red Blood Cell (RBC) Count 4.63 mill/uL (4.20-5.40); White Blood Cell (WBC) Count 25.3 10x3/uL (4.8-10.8)
[2023-10-17 17:54] LABS: Delete Auto Diff?? YES
[2023-10-17 18:10] LABS: Troponin I Less than 0.010 ng/mL (< 0.028)
[2023-10-17 18:14] LABS: ALT (SGPT) 31 U/L (8-55); AST (SGOT) 38 U/L (5-34); Albumin 4.9 g/dL (3.5-5.0); Alkaline Phosphatase 72 U/L (40-110); BUN (Urea Nitrogen) 12 mg/dL (7.0-18.7); Bilirubin, Total Less than 0.2 mg/dL (0.2-1.2); Calc. Creatinine Clearance 0 mL/min (70-130); Calcium 9.5 mg/dL (7.8-10.44); Chloride 114 mmol/L (98-107); Estimated GFR 63; Globulin 3.3 g/dL (2.4-3.5); Glucose 222 mg/dL (70-105); Lipase 25 U/L (8-78); Potassium 5.6 mmol/L (3.5-5.1); Protein, Total 8.2 g/dL (6.0-8.3); Sodium 138 mmol/L (136-145)
[2023-10-17 18:21] LABS: Carbon Dioxide Less than 8 mmol/L (22-29)
[2023-10-17] MEDS ORDERED: diphenhydrAMINE 50 MG/ML VIAL ONE (18:26)
[2023-10-17] MEDS ORDERED: Haloperidol Lactate 5 MG/ML VIAL ONE (18:27)
[2023-10-17] MEDS ORDERED: Metoclopramide HCl 10 MG/2 ML VIAL ONE (18:27)
[2023-10-17 18:31] LABS: BHCG - Serum Negative (NEGATIVE); Pregs Control Background? CLEAR/WHITE (CLR/WHITE); Pregs Control Bar Appear? YES (CONTROL BAR)
[2023-10-17 18:32] LABS: Analyzer IN Cardio ER; Base Excess -26.1 mEq/L (-2.0 to +3.0); Calcium, Ionized (venous) 1.26 mmol/L (1.16-1.32); Chloride (VBG) 113 mmol/L (98-106); Hematocrit-VBG 44 % (36.0-47.0); Hemoglobin (Hb) 15.1 g/dL (11.7-15.5); Potassium (VBG) 5.42 mmol/L (3.70-5.30); Sodium 145 mmol/L (133-146)
[2023-10-17 18:32] LABS: Band 5 % (5-11); Burr Cells SLIGHT = 2-5 cells HPF (0-1); CellaVision Operator ID LAB.KB; Large Platelets 5.9 % (0-5); Lymphocytes 3 % (21-51); Macrocytosis SLIGHT = 6-15 cells HPF (0-5); Neutrophil 89 % (42-75); Platelet Adequacy Comment Platelets Increased; Reactive Lymphocytes 3 % (0-10); Total Cell Count 102
[2023-10-17] MEDS ORDERED: Sodium Bicarb 50 MEQ/50 ML VIAL ONE (18:51)
[2023-10-17 19:14] LABS: Bacteria/HPF 1+ HPF (None Seen); Bilirubin Negative (Negative); Blood, Urine 1+ (Negative); CAUTI Indications for Culture Pelvic or flank pain; Clarity Clear (Clear); Glucose, Urine (Dipstick) Greater than 1000 mg/dL (Negative); Ketone, Urine Greater than 150 mg/dL (Negative); Leukocyte Negative Leu/uL (Negative); Nitrite Negative (Negative); Protein, Urine (Dipstick) 70 mg/dL (Neg-Trace); RBC/HPF 0-3 HPF (0-3); Specific Gravity, Urine 1.018 (1.002-1.036); Squamous Epithelial 0-3 HPF (0-3); Urine Culture Reflex No No; Urobilinogen Normal mg/dL (Less than 2); WBC/HPF 0-3 HPF (0-3)
[2023-10-17 19:16] LABS: Acetaminophen Less than 10 mcg/mL (10.0-30.0); Alcohol Less than 10.0 mg/dL (Less than 10); Salicylate Less than 8.0 mg/dL (15.0-30.0)
[2023-10-17 19:20] LABS: Amphetamine Not Detected (NotDetected); Barbiturates Screen Not Detected (NotDetected); Benzodiazepine Screen Not Detected (NotDetected); Cocaine Metabolite Screen Not Detected (NotDetected); Methadone Not Detected (NotDetected); Methamphetamine Not Detected (NotDetected); Opiate Screen Not Detected (NotDetected); Oxycodone Screen Not Detected (NotDetected); Phencyclidine (PCP) Not Detected (NotDetected); THC/Cannabinoid Screen Detected (NotDetected); Tricyclic Screen Not Detected (NotDetected)
[2023-10-17] MEDS ORDERED: Sodium Chloride 0.9% 1,000 ML IV PRN ×4 (19:34)
[2023-10-17] MEDS ORDERED: Electrolyte Replacement Protocol 1 EACH IVPB PRN (19:34)
[2023-10-17] MEDS ORDERED: Dextrose 50% Abboject 50 ML SYRINGE SLOW IVP PRN (19:34)
[2023-10-17] MEDS ORDERED: Dextrose 5 %-0.45 % NaCl 1,000 ML IV PRN (19:34)
[2023-10-17] MEDS ORDERED: NS 0.9% w/ 20 MEQ KCL 1,000 ML IV PRN ×2 (19:34)
[2023-10-17] MEDS ORDERED: HUMULIN R 100 UNITS in Sodium Chloride 0.9% 100 ML IVPB SCH (19:45)
[2023-10-17] MEDS ORDERED: INSULIN REGULAR IN 0.9 % NACL 100 UNITS/100 ML BAG ONE (20:16)
[2023-10-17 20:25] LABS: SARS-CoV-2 NAA Rapid Test Not Detected (NotDetected)
[2023-10-17 20:27] LABS: Actual Bicarbonate (HCO3v) 5.1 mEq/L (22-28)
[2023-10-17 21:17] LABS: Calcium 8.6 mg/dL (7.8-10.44); Chloride 114 mmol/L (98-107); Phosphorus 3.6 mg/dL (2.3-4.7); Potassium 5.4 mmol/L (3.5-5.1); Sodium 138 mmol/L (136-145)
[2023-10-17 21:26] LABS: Calc. Creatinine Clearance 0 mL/min (70-130); Estimated GFR 77
[2023-10-17 21:37] LABS: Glucose 228 mg/dL (70-105)
[2023-10-17 21:41] LABS: BUN (Urea Nitrogen) 11 mg/dL (7.0-18.7)
[2023-10-17 21:43] LABS: Carbon Dioxide Less than 8 mmol/L (22-29)
[2023-10-17] MEDS ORDERED: Ondansetron ODT 4 MG TAB PO PRN (22:00)
[2023-10-17] MEDS ORDERED: Acetaminophen 325 MG TAB PO PRN (22:00)
[2023-10-17] MEDS ORDERED: Calcium Carbonate 500 MG ChewTAB PO PRN (22:00)
[2023-10-17] MEDS ORDERED: Ondansetron PF 4 MG/2 ML Vial IVP PRN (22:00)
[2023-10-17] MEDS ORDERED: Magnesium 2 GM/50 ML(in water) 2 GM in Premix 1 BAG IVPB SCH (23:00)
[2023-10-18 00:31] LABS: Anion Gap 15 mmol/L (10-20); BUN (Urea Nitrogen) 6 mg/dL (7.0-18.7); Calc. Creatinine Clearance 0 mL/min (70-130); Calcium 8.4 mg/dL (7.8-10.44); Chloride 112 mmol/L (98-107); Estimated GFR 84; Glucose 163 mg/dL (70-105); Potassium 3.3 mmol/L (3.5-5.1); Sodium 133 mmol/L (136-145)
[2023-10-18 00:34] LABS: Carbon Dioxide 9 mmol/L (22-29)
[2023-10-18] MEDS: D5 1/2 NS w/20 mEq KCL 1,000 ML IV PRN ×3 (01:30→09:09)
[2023-10-18] MEDS: Potassium Chloride 20 MEQ in Premix 1 BAG IVPB SCH ×2 (01:31→04:43)
[2023-10-18 03:48] LABS: #Basophils 0.1 thou/uL (0.0-0.2); #Monocytes 2.8 thou/uL (0.11-0.59); #Neutrophils 17.2 thou/uL (1.40-6.50); %Basophils 0.2 % (0.0-1.0); %Lymphocytes 16.3 % (21.0-51.0); %Monocytes 11.7 % (0.0-10.0); %Neutrophils 71.2 % (42.0-75.0); Hemoglobin 11.7 g/dL (12.0-16.0); Mean Corpuscular HGB CONC 32.4 g/dL (32.0-36.0); Mean Corpuscular Hemoglobin 31.1 pg (27.0-31.0); Mean Platelet Volume 9.2 fL (7.4-10.4); RBC Distribution Width 13.3 % (11.5-14.5); Red Blood Cell (RBC) Count 3.76 mill/uL (4.20-5.40); White Blood Cell (WBC) Count 24.2 10x3/uL (4.8-10.8)
[2023-10-18 04:13] LABS: Anion Gap 12 mmol/L (10-20); BUN (Urea Nitrogen) 5 mg/dL (7.0-18.7); Calc. Creatinine Clearance 77 mL/min (70-130); Calcium 8.3 mg/dL (7.8-10.44); Carbon Dioxide 11 mmol/L (22-29); Chloride 112 mmol/L (98-107); Estimated GFR 92; Glucose 143 mg/dL (70-105); Sodium 131 mmol/L (136-145)
[2023-10-18 04:15] LABS: Hematocrit 36.1 % (36.0-47.0); Platelet Count 424 10x3/uL (130-400)
[2023-10-18] MEDS: Famotidine 20 MG TAB PO SCH ×2 (08:39→20:58)
[2023-10-18] MEDS: Famotidine/PF 20 mg/2ml Vial SLOW IVP SCH ×2 (08:39→20:59)
[2023-10-18] MEDS ORDERED: Famotidine/PF 20 mg/2ml Vial SLOW IVP SCH (09:00)
[2023-10-18] MEDS ORDERED: Dextrose 50% Abboject 50 ML SYRINGE SLOW IVP PRN (09:56)
[2023-10-18] MEDS ORDERED: Dextrose 5% in Water 1,000 ML IV PRN (09:56)
[2023-10-18] MEDS ORDERED: Glucagon 1 MG/ML KIT IM PRN (09:56)
[2023-10-18] MEDS ORDERED: HumaLOG 300 UNITS/3 ML VIAL SC PRN ×2 (09:56)
[2023-10-18 19:56] LABS: Chloride 104 mmol/L (98-107); Potassium 3.7 mmol/L (3.5-5.1); Sodium 132 mmol/L (136-145)
[2023-10-18 19:57] LABS: Calcium 8.5 mg/dL (7.8-10.44); Glucose 272 mg/dL (70-105)
[2023-10-18 19:59] LABS: Anion Gap 15 mmol/L (10-20); Carbon Dioxide 17 mmol/L (22-29)
[2023-10-18 20:00] LABS: Calc. Creatinine Clearance 60 mL/min (70-130); Estimated GFR 68
[2023-10-18 20:01] LABS: BUN (Urea Nitrogen) 6 mg/dL (7.0-18.7)
[2023-10-18] MEDS ORDERED: HumuLIN 70/30 100 Unit/ ml 10 ml Vial SC SCH (21:00)
[2023-10-18] MEDS: HumuLIN 70/30 100 Unit/ ml 10 ml Vial SC SCH (21:00)
[2023-10-19 05:15] LABS: #Basophils 0.1 thou/uL (0.0-0.2); #Monocytes 0.9 thou/uL (0.11-0.59); #Neutrophils 4.3 thou/uL (1.40-6.50); %Basophils 0.6 % (0.0-1.0); %Eosinophils 0.4 % (0.0-10.0); %Lymphocytes 36.6 % (21.0-51.0); %Monocytes 10.7 % (0.0-10.0); %Neutrophils 51.5 % (42.0-75.0); Hematocrit 35.5 % (36.0-47.0); Hemoglobin 11.9 g/dL (12.0-16.0); Mean Corpuscular HGB CONC 33.5 g/dL (32.0-36.0); Mean Corpuscular Hemoglobin 30.4 pg (27.0-31.0); Mean Corpuscular Volume 90.8 fl (78.0-98.0); Mean Platelet Volume 9.3 fL (7.4-10.4); Platelet Count 356 10x3/uL (130-400); RBC Distribution Width 13.3 % (11.5-14.5); Red Blood Cell (RBC) Count 3.91 mill/uL (4.20-5.40); White Blood Cell (WBC) Count 8.3 10x3/uL (4.8-10.8)
[2023-10-19 05:36] LABS: Anion Gap 12 mmol/L (10-20); BUN (Urea Nitrogen) 4 mg/dL (7.0-18.7); Calc. Creatinine Clearance 105 mL/min (70-130); Calcium 8.6 mg/dL (7.8-10.44); Carbon Dioxide 22 mmol/L (22-29); Chloride 108 mmol/L (98-107); Estimated GFR 118; Potassium 2.8 mmol/L (3.5-5.1); Sodium 139 mmol/L (136-145)
[2023-10-19 06:11] LABS: Glucose 43 mg/dL (70-105)
[2023-10-19] MEDS: Potassium Chloride 20 MEQ TAB PO SCH ×2 (06:36→08:36)
[2023-10-19 08:03] VITALS: TEMP 97.7
[2023-10-19] MEDS: Famotidine 20 MG TAB PO SCH (08:33)
[2023-10-19] MEDS: HumuLIN 70/30 100 Unit/ ml 10 ml Vial SC SCH (08:34)
[2023-10-19] MEDS: Famotidine/PF 20 mg/2ml Vial SLOW IVP SCH (08:34)
== END 2023-10-19 11:51 | disposition home or self-care (01) | DRG 638 ==
LOC: ERS 17:06 → IMCU/EMU 19:34
PROVIDERS: ADMIT Student in an Organized Health Care Education/Training Program; ATTEND Internal Medicine
PROC: 4A043R1 Measurement of Venous Saturation, Peripheral, Percutaneous Approach (ICD-10-PCS; principal; 2023-10-17)
DX: E10.10 Type 1 diabetes mellitus with ketoacidosis without coma (principal); N17.9 Acute kidney failure, unspecified; F12.10 Cannabis abuse, uncomplicated; Z79.4 Long term (current) use of insulin; Z98.51 Tubal ligation status; F17.290 Nicotine dependence, other tobacco product, uncomplicated; D72.829 Elevated white blood cell count, unspecified; E87.5 Hyperkalemia; Z11.52 Encounter for screening for COVID-19
CPT/HCPCS: 36415; 36416; 71045; 80048; 80053; 80306; 80307; 81001; 82010; 82550; 82805; 83690; 83735; 83930; 84100; 84443; 84484; 84703; 85025; 87040; 93005; J1200; J1630; J1815; J2405; J2765; J3475; J3480; J7030; J7042; J7050; Q0162

== ENCOUNTER 2023-11-14 01:25 | Inpatient (IN) | payer SELFPAY ==
[2023-11-14] MEDS ORDERED: Ondansetron PF 4 MG/2 ML Vial ONE (01:43)
[2023-11-14 02:03] LABS: Calcium, Ionized (venous) 1.37 mmol/L (1.16-1.32); Chloride (VBG) 101 mmol/L (98-106); Hematocrit-VBG 46 % (36.0-47.0); Hemoglobin (Hb) 15.6 g/dL (11.7-15.5); Sodium 139 mmol/L (133-146)
[2023-11-14 02:05] LABS: Actual Bicarbonate (HCO3v) 8.3 mEq/L (22-28)
[2023-11-14 02:10] LABS: Hematocrit 48.3 % (36.0-47.0); Hemoglobin 15.2 g/dL (12.0-16.0); Manual Diff?? YES; Mean Corpuscular HGB CONC 31.5 g/dL (32.0-36.0); Mean Corpuscular Hemoglobin 30.4 pg (27.0-31.0); Mean Corpuscular Volume 96.6 fl (78.0-98.0); Mean Platelet Volume 9.6 fL (7.4-10.4); Platelet Count 645 10x3/uL (130-400); White Blood Cell (WBC) Count 27.8 10x3/uL (4.8-10.8)
[2023-11-14 02:12] LABS: Delete Auto Diff?? YES
[2023-11-14] MEDS ORDERED: Prochlorperazine 10 MG/2 ML VIAL ONE (02:16)
[2023-11-14] MEDS ORDERED: INSULIN REGULAR IN 0.9 % NACL 100 UNITS/100 ML BAG ONE (02:26)
[2023-11-14 02:35] LABS: Band 9 % (5-11); CellaVision Operator ID lab.abc; Lymphocytes 8 % (21-51); Monocytes 6 % (0-10); Neutrophil 76 % (42-75); Platelet Adequacy Comment Platelets Increased; RBC Morphology Within Normal Limits; Reactive Lymphocytes 1 % (0-10); Total Cell Count 100
[2023-11-14 02:42] LABS: ALT (SGPT) 39 U/L (8-55); AST (SGOT) 54 U/L (5-34); Albumin 4.9 g/dL (3.5-5.0); Alkaline Phosphatase 72 U/L (40-110); Anion Gap 30 mmol/L (10-20); BUN (Urea Nitrogen) 14 mg/dL (7.0-18.7); Bilirubin, Total 0.3 mg/dL (0.2-1.2); Calc. Creatinine Clearance 0 mL/min (70-130); Calcium 10.2 mg/dL (7.8-10.44); Carbon Dioxide 8 mmol/L (22-29); Chloride 100 mmol/L (98-107); Critical Call Chemistry NUR.MVB@0240; Estimated GFR 49; Globulin 4.5 g/dL (2.4-3.5); Glucose 409 mg/dL (70-105); Potassium 5.4 mmol/L (3.5-5.1); Protein, Total 9.4 g/dL (6.0-8.3); Sodium 133 mmol/L (136-145)
[2023-11-14 04:23] LABS: Bilirubin Negative (Negative); Blood, Urine Trace (Negative); Glucose, Urine (Dipstick) 500 mg/dL (Negative); Ketone, Urine > or equal to 80 mg/dL (Negative); Leukocyte Negative (Negative); Nitrite Negative (Negative); Protein, Urine (Dipstick) Trace mg/dL (Neg-Trace); Urobilinogen 0.2 mg/dL (Less than 2); pH, Urine 5.5 (5.0-9.0)
[2023-11-14 04:31] LABS: Clarity Clear (Clear)
[2023-11-14 04:35] LABS: Bacteria/HPF None Seen HPF (None Seen); CAUTI Indications for Culture Pelvic or flank pain; RBC/HPF 0-3 HPF (0-3); Squamous Epithelial 0-3 HPF (0-3); WBC/HPF 0-3 HPF (0-3)
[2023-11-14 04:36] LABS: Urine Culture Reflex No No
[2023-11-14 04:41] LABS: Specific Gravity, Urine 1.027 (1.002-1.036)
[2023-11-14] MEDS ORDERED: Sodium Chloride 0.9% 1,000 ML IV PRN ×2 (05:16)
[2023-11-14] MEDS ORDERED: Electrolyte Replacement Protocol 1 EACH IVPB SCH (05:16)
[2023-11-14] MEDS ORDERED: Acetaminophen 325 MG TAB PO PRN (05:16)
[2023-11-14] MEDS ORDERED: Ondansetron PF 4 MG/2 ML Vial IVP PRN (05:16)
[2023-11-14] MEDS ORDERED: Dextrose 50% Abboject 50 ML SYRINGE SLOW IVP PRN ×2 (05:16→12:15)
[2023-11-14] MEDS ORDERED: Ondansetron ODT 4 MG TAB PO PRN (05:16)
[2023-11-14] MEDS ORDERED: Acetaminophen 650 MG Suppository PR PRN (05:16)
[2023-11-14] MEDS ORDERED: D5 1/2 NS w/20 mEq KCL 1,000 ML IV PRN (05:16)
[2023-11-14] MEDS ORDERED: Dextrose 5 %-0.45 % NaCl 1,000 ML IV PRN (05:16)
[2023-11-14] MEDS ORDERED: NS 0.9% w/ 20 MEQ KCL 1,000 ML IV PRN ×2 (05:16)
[2023-11-14] MEDS ORDERED: Morphine 4 MG/ML VIAL SLOW IVP PRN (05:30)
[2023-11-14 06:14] VITALS: BMI 19.6
[2023-11-14] MEDS ORDERED: HUMULIN R 100 UNITS in Sodium Chloride 0.9% 100 ML IVPB SCH (06:30)
[2023-11-14 06:51] LABS: Anion Gap 17 mmol/L (10-20); BUN (Urea Nitrogen) 10 mg/dL (7.0-18.7); Calc. Creatinine Clearance 66 mL/min (70-130); Calcium 8.8 mg/dL (7.8-10.44); Carbon Dioxide 12 mmol/L (22-29); Chloride 106 mmol/L (98-107); Estimated GFR 78; Glucose 206 mg/dL (70-105); Potassium 4.3 mmol/L (3.5-5.1); Sodium 131 mmol/L (136-145)
[2023-11-14] MEDS: Enoxaparin 40 MG (0.4 mL) SYRINGE SC SCH (10:09)
[2023-11-14 10:33] LABS: Anion Gap 13 mmol/L (10-20); BUN (Urea Nitrogen) 8 mg/dL (7.0-18.7); Calc. Creatinine Clearance 75 mL/min (70-130); Calcium 8.5 mg/dL (7.8-10.44); Carbon Dioxide 14 mmol/L (22-29); Chloride 105 mmol/L (98-107); Estimated GFR 91; Glucose 179 mg/dL (70-105); Potassium 4.1 mmol/L (3.5-5.1); Sodium 128 mmol/L (136-145)
[2023-11-14] MEDS ORDERED: Dextrose 5% in Water 1,000 ML IV PRN (12:15)
[2023-11-14] MEDS ORDERED: Glucagon 1 MG/ML KIT IM PRN (12:15)
[2023-11-14 13:47] LABS: Anion Gap 14 mmol/L (10-20); BUN (Urea Nitrogen) 7 mg/dL (7.0-18.7); Calc. Creatinine Clearance 76 mL/min (70-130); Calcium 8.3 mg/dL (7.8-10.44); Carbon Dioxide 13 mmol/L (22-29); Chloride 105 mmol/L (98-107); Estimated GFR 92; Glucose 216 mg/dL (70-105); Potassium 4.1 mmol/L (3.5-5.1); Sodium 128 mmol/L (136-145)
[2023-11-14] MEDS: HumaLOG 300 UNITS/3 ML VIAL SC PRN ×2 (17:24→19:46)
[2023-11-14 19:25] LABS: Amphetamine Not Detected (NotDetected); Barbiturates Screen Not Detected (NotDetected); Benzodiazepine Screen Not Detected (NotDetected); Cocaine Metabolite Screen Not Detected (NotDetected); Methadone Not Detected (NotDetected); Methamphetamine Not Detected (NotDetected); Opiate Screen Not Detected (NotDetected); Oxycodone Screen Not Detected (NotDetected); Phencyclidine (PCP) Not Detected (NotDetected); THC/Cannabinoid Screen Detected (NotDetected); Tricyclic Screen Not Detected (NotDetected)
[2023-11-14] MEDS ORDERED: Insulin Glargine 30 UNITS/0.3 ML VIAL SC SCH (21:00)
[2023-11-15] MEDS: HumaLOG 300 UNITS/3 ML VIAL SC PRN (06:34)
[2023-11-15 07:12] LABS: Anion Gap 13 mmol/L (10-20); BUN (Urea Nitrogen) 6 mg/dL (7.0-18.7); Calc. Creatinine Clearance 86 mL/min (70-130); Calcium 8.9 mg/dL (7.8-10.44); Carbon Dioxide 18 mmol/L (22-29); Chloride 105 mmol/L (98-107); Estimated GFR 107; Glucose 141 mg/dL (70-105); Potassium 3.7 mmol/L (3.5-5.1); Sodium 132 mmol/L (136-145)
[2023-11-15 08:28] VITALS: TEMP 98.1
[2023-11-15 08:34] LABS: #Basophils 0.1 thou/uL (0.0-0.2); #Eosinphils 0.1 thou/uL (0.0-0.7); #Monocytes 0.8 thou/uL (0.11-0.59); #Neutrophils 5.2 thou/uL (1.40-6.50); %Basophils 0.5 % (0.0-1.0); %Lymphocytes 38.4 % (21.0-51.0); %Monocytes 8.3 % (0.0-10.0); %Neutrophils 51.5 % (42.0-75.0); Hemoglobin 13.2 g/dL (12.0-16.0); Mean Corpuscular Hemoglobin 30.1 pg (27.0-31.0); Mean Corpuscular Volume 91.3 fl (78.0-98.0); Mean Platelet Volume 9.4 fL (7.4-10.4); Platelet Count 498 10x3/uL (130-400); RBC Distribution Width 14.1 % (11.5-14.5); Red Blood Cell (RBC) Count 4.38 mill/uL (4.20-5.40); White Blood Cell (WBC) Count 10.1 10x3/uL (4.8-10.8)
[2023-11-15] MEDS: Enoxaparin 40 MG (0.4 mL) SYRINGE SC SCH (08:57)
[2023-11-15 12:09] VITALS: BP 111/73
== END 2023-11-15 12:48 | disposition home or self-care (01) | DRG 638 ==
LOC: ERS 01:25 → IMCU/EMU 04:53 → T4-A 19:18
PROVIDERS: ADMIT Student in an Organized Health Care Education/Training Program; ATTEND Hospitalist
DX: E10.10 Type 1 diabetes mellitus with ketoacidosis without coma (principal); N17.9 Acute kidney failure, unspecified; F17.210 Nicotine dependence, cigarettes, uncomplicated; D72.829 Elevated white blood cell count, unspecified; Z98.51 Tubal ligation status; Z79.4 Long term (current) use of insulin
CPT/HCPCS: 36415; 36416; 71045; 80048; 80053; 80306; 81001; 82010; 82805; 85025; 93005; J0780; J1650; J1815; J2405; J3480

== ENCOUNTER 2023-11-18 11:54 | Inpatient (IN) | payer OTHER, SELFPAY ==
[2023-11-18 13:06] LABS: #Basophils 0.1 thou/uL (0.0-0.2); #Monocytes 0.9 thou/uL (0.11-0.59); #Neutrophils 18.3 thou/uL (1.40-6.50); %Basophils 0.6 % (0.0-1.0); %Lymphocytes 10.6 % (21.0-51.0); %Neutrophils 83.9 % (42.0-75.0); Hematocrit 46.1 % (36.0-47.0); Hemoglobin 14.5 g/dL (12.0-16.0); Mean Corpuscular HGB CONC 31.5 g/dL (32.0-36.0); Mean Corpuscular Hemoglobin 30.5 pg (27.0-31.0); Mean Corpuscular Volume 97.1 fl (78.0-98.0); Mean Platelet Volume 9.5 fL (7.4-10.4); Platelet Count 516 10x3/uL (130-400); RBC Distribution Width 13.9 % (11.5-14.5); Red Blood Cell (RBC) Count 4.75 mill/uL (4.20-5.40); White Blood Cell (WBC) Count 21.8 10x3/uL (4.8-10.8)
[2023-11-18 13:18] LABS: BHCG - Serum Negative (NEGATIVE); Pregs Control Bar Appear? YES (CONTROL BAR)
[2023-11-18 13:19] LABS: Pregs Control Background? CLEAR/WHITE (CLR/WHITE)
[2023-11-18 13:23] LABS: Phosphorus 5.1 mg/dL (2.3-4.7)
[2023-11-18 13:24] LABS: ALT (SGPT) 29 U/L (8-55); AST (SGOT) 27 U/L (5-34); Albumin 4.6 g/dL (3.5-5.0); Alkaline Phosphatase 79 U/L (40-110); BUN (Urea Nitrogen) 12 mg/dL (7.0-18.7); Bilirubin, Total 0.2 mg/dL (0.2-1.2); Calc. Creatinine Clearance 0 mL/min (70-130); Calcium 9.3 mg/dL (7.8-10.44); Chloride 103 mmol/L (98-107); Estimated GFR 58; Globulin 3.7 g/dL (2.4-3.5); Lipase 29 U/L (8-78); Potassium 5.5 mmol/L (3.5-5.1); Protein, Total 8.3 g/dL (6.0-8.3); Sodium 133 mmol/L (136-145)
[2023-11-18 13:26] LABS: Bacteria/HPF None Seen HPF (None Seen); Bilirubin Negative (Negative); Blood, Urine Negative (Negative); CAUTI Indications for Culture < 2yrs of age; Clarity Clear (Clear); Glucose, Urine (Dipstick) Greater than 1000 mg/dL (Negative); Ketone, Urine Greater than 150 mg/dL (Negative); Leukocyte Negative Leu/uL (Negative); Nitrite Negative (Negative); Protein, Urine (Dipstick) 20 mg/dL (Neg-Trace); RBC/HPF 0-3 HPF (0-3); Specific Gravity, Urine 1.023 (1.002-1.036); Squamous Epithelial None Seen HPF (0-3); Urobilinogen Normal mg/dL (Less than 2); WBC/HPF 0-3 HPF (0-3)
[2023-11-18 13:27] LABS: Troponin I Less than 0.010 ng/mL (< 0.028)
[2023-11-18 13:29] LABS: Carbon Dioxide Less than 8 mmol/L (22-29); Critical Call Chemistry NUR.JF4 @1329; Glucose 466 mg/dL (70-105)
[2023-11-18 13:31] LABS: Urine Culture Reflex Yes Yes
[2023-11-18] MEDS ORDERED: INSULIN REGULAR IN 0.9 % NACL 100 UNITS/100 ML BAG ONE (13:58)
[2023-11-18 14:35] LABS: Base Excess -24.1 mEq/L (-2.0 to +3.0); Calcium, Ionized (venous) 1.23 mmol/L (1.16-1.32); Chloride (VBG) 104 mmol/L (98-106); Hematocrit-VBG 46 % (36.0-47.0); Hemoglobin (Hb) 15.7 g/dL (11.7-15.5); Potassium (VBG) 5.46 mmol/L (3.70-5.30); Sodium 138 mmol/L (133-146)
[2023-11-18 14:37] LABS: Actual Bicarbonate (HCO3v) 5.3 mEq/L (22-28); pH (venous) 7.022 (7.32-7.43)
[2023-11-18] MEDS ORDERED: Sodium Bicarb 50 mEq/50 ML VIAL ONE (15:12)
[2023-11-18] MEDS ORDERED: Haloperidol Lactate 5 MG/ML VIAL ONE (15:12)
[2023-11-18] MEDS ORDERED: Sodium Chloride 0.9% 1,000 ML IV PRN ×4 (15:13)
[2023-11-18] MEDS ORDERED: Electrolyte Replacement Protocol 1 EACH IVPB ONE (15:13)
[2023-11-18] MEDS ORDERED: NS 0.9% w/ 20 MEQ KCL 1,000 ML IV PRN ×2 (15:13)
[2023-11-18] MEDS ORDERED: Dextrose 5 %-0.45 % NaCl 1,000 ML IV PRN (15:13)
[2023-11-18] MEDS ORDERED: Acetaminophen 325 MG TAB PO PRN (15:13)
[2023-11-18] MEDS ORDERED: HUMULIN R 100 UNITS in Sodium Chloride 0.9% 100 ML IVPB SCH (15:15)
[2023-11-18] MEDS ORDERED: Electrolyte Replacement Protocol FS PRN (15:30)
[2023-11-18 17:14] LABS: Phosphorus 4.1 mg/dL (2.3-4.7)
[2023-11-18 17:15] LABS: BUN (Urea Nitrogen) 13 mg/dL (7.0-18.7); Calc. Creatinine Clearance 0 mL/min (70-130); Calcium 8.7 mg/dL (7.8-10.44); Chloride 112 mmol/L (98-107); Estimated GFR 57; Glucose 346 mg/dL (70-105); Potassium 5.9 mmol/L (3.5-5.1); Sodium 137 mmol/L (136-145)
[2023-11-18 17:20] LABS: Carbon Dioxide Less than 8 mmol/L (22-29); Critical Call Chemistry NUR.MAT @1719
[2023-11-18 17:42] VITALS: BMI 20.9
[2023-11-18] MEDS: Ondansetron PF 4 MG/2 ML Vial IVP PRN (18:08)
[2023-11-18 20:28] LABS: Anion Gap 17 mmol/L (10-20); BUN (Urea Nitrogen) 10 mg/dL (7.0-18.7); Calc. Creatinine Clearance 75 mL/min (70-130); Calcium 8.1 mg/dL (7.8-10.44); Carbon Dioxide 10 mmol/L (22-29); Chloride 111 mmol/L (98-107); Estimated GFR 85; Glucose 107 mg/dL (70-105); Potassium 4.5 mmol/L (3.5-5.1); Sodium 133 mmol/L (136-145)
[2023-11-18] MEDS ORDERED: Magnesium 2 GM/50 ML(in water) 2 GM in Premix 1 BAG IVPB SCH (20:30)
[2023-11-18] MEDS: Dextrose 50% Abboject 50 ML SYRINGE SLOW IVP PRN (20:57)
[2023-11-18] MEDS: Famotidine/PF 20 mg/2ml Vial SLOW IVP SCH (21:04)
[2023-11-18] MEDS: Metoclopramide HCl 10 MG (2 mL) VIAL IVP SCH ×2 (21:05→21:08)
[2023-11-19 00:04] LABS: Anion Gap 13 mmol/L (10-20); BUN (Urea Nitrogen) 6 mg/dL (7.0-18.7); Calc. Creatinine Clearance 79 mL/min (70-130); Calcium 7.8 mg/dL (7.8-10.44); Carbon Dioxide 12 mmol/L (22-29); Chloride 108 mmol/L (98-107); Estimated GFR 90; Glucose 197 mg/dL (70-105); Sodium 129 mmol/L (136-145)
[2023-11-19] MEDS: Ondansetron PF 4 MG/2 ML Vial IVP PRN (00:05)
[2023-11-19 00:11] LABS: Phosphorus 1.9 mg/dL (2.3-4.7)
[2023-11-19] MEDS ORDERED: Potassium Phosphate 15 MMOL in Sodium Chloride 0.9% 100 ML IVPB SCH (01:00)
[2023-11-19] MEDS: D5 1/2 NS w/20 mEq KCL 1,000 ML IV PRN ×3 (01:27→10:01)
[2023-11-19] MEDS: Dextrose 50% Abboject 50 ML SYRINGE SLOW IVP PRN (02:26)
[2023-11-19] MEDS: Metoclopramide HCl 10 MG (2 mL) VIAL IVP SCH ×4 (02:29→20:22)
[2023-11-19 05:29] LABS: Phosphorus 2.3 mg/dL (2.3-4.7)
[2023-11-19 05:30] LABS: Anion Gap 11 mmol/L (10-20); BUN (Urea Nitrogen) 4 mg/dL (7.0-18.7); Calc. Creatinine Clearance 83 mL/min (70-130); Calcium 7.9 mg/dL (7.8-10.44); Carbon Dioxide 14 mmol/L (22-29); Chloride 107 mmol/L (98-107); Estimated GFR 95; Glucose 200 mg/dL (70-105); Potassium 3.7 mmol/L (3.5-5.1); Sodium 128 mmol/L (136-145)
[2023-11-19] MEDS: Famotidine/PF 20 mg/2ml Vial SLOW IVP SCH ×2 (08:02→20:22)
[2023-11-19] MEDS: Sodium Chloride 0.9% 1,000 ML IV SCH ×2 (11:35→17:37)
[2023-11-19 12:28] LABS: Anion Gap 15 mmol/L (10-20); BUN (Urea Nitrogen) Less than 4 mg/dL (7.0-18.7); Calc. Creatinine Clearance 70 mL/min (70-130); Calcium 8.5 mg/dL (7.8-10.44); Carbon Dioxide 14 mmol/L (22-29); Chloride 102 mmol/L (98-107); Estimated GFR 80; Glucose 229 mg/dL (70-105); Potassium 3.8 mmol/L (3.5-5.1); Sodium 127 mmol/L (136-145)
[2023-11-19] MEDS ORDERED: Dextrose 5% in Water 1,000 ML IV PRN (12:35)
[2023-11-19] MEDS ORDERED: Dextrose 50% Abboject 50 ML SYRINGE SLOW IVP PRN (12:35)
[2023-11-19] MEDS ORDERED: Glucagon 1 MG/ML KIT IM PRN (12:35)
[2023-11-19] MEDS: HumaLOG 300 UNITS/3 ML VIAL SC PRN (17:37)
[2023-11-19 17:40] LABS: Anion Gap 15 mmol/L (10-20); BUN (Urea Nitrogen) 7 mg/dL (7.0-18.7); Calc. Creatinine Clearance 77 mL/min (70-130); Calcium 8.3 mg/dL (7.8-10.44); Carbon Dioxide 14 mmol/L (22-29); Chloride 103 mmol/L (98-107); Estimated GFR 90; Glucose 271 mg/dL (70-105); Potassium 3.9 mmol/L (3.5-5.1); Sodium 128 mmol/L (136-145)
[2023-11-19] MEDS ORDERED: HumaLOG 300 UNITS/3 ML VIAL SC PRN (17:45)
[2023-11-19] MEDS ORDERED: Insulin Glargine 30 UNITS/0.3 ML VIAL SC SCH (21:00)
[2023-11-20] MEDS: Metoclopramide HCl 10 MG (2 mL) VIAL IVP SCH ×4 (03:58→21:08)
[2023-11-20 07:03] LABS: Anion Gap 12 mmol/L (10-20); BUN (Urea Nitrogen) 5 mg/dL (7.0-18.7); Calc. Creatinine Clearance 97 mL/min (70-130); Calcium 8.7 mg/dL (7.8-10.44); Carbon Dioxide 22 mmol/L (22-29); Chloride 103 mmol/L (98-107); Estimated GFR 111; Glucose 108 mg/dL (70-105); Potassium 2.8 mmol/L (3.5-5.1); Sodium 134 mmol/L (136-145)
[2023-11-20] MEDS: Famotidine/PF 20 mg/2ml Vial SLOW IVP SCH ×2 (08:45→21:08)
[2023-11-20] MEDS: Potassium Chloride 20 MEQ TAB PO SCH ×2 (08:48→12:34)
[2023-11-20] MEDS: HumaLOG 300 UNITS/3 ML VIAL SC PRN ×2 (12:35→16:53)
[2023-11-20] MEDS: HumuLIN 70/30 100 Unit/ml 10 ml Vial SC SCH (16:26)
[2023-11-20] MEDS ORDERED: HumuLIN 70/30 (300 UNITS/3 ML VIAL) SC SCH (21:00)
[2023-11-21] MEDS: Metoclopramide HCl 10 MG (2 mL) VIAL IVP SCH ×2 (03:15→08:27)
[2023-11-21] MEDS: HumaLOG 300 UNITS/3 ML VIAL SC PRN ×2 (05:36→11:53)
[2023-11-21 08:10] LABS: #Basophils 0.1 thou/uL (0.0-0.2); #Eosinphils 0.1 thou/uL (0.0-0.7); #Neutrophils 3.5 thou/uL (1.40-6.50); %Basophils 0.7 % (0.0-1.0); %Eosinophils 1.3 % (0.0-10.0); %Lymphocytes 38.2 % (21.0-51.0); %Neutrophils 46.5 % (42.0-75.0); Hemoglobin 13.4 g/dL (12.0-16.0); Mean Corpuscular HGB CONC 33.5 g/dL (32.0-36.0); Mean Corpuscular Hemoglobin 29.8 pg (27.0-31.0); Mean Corpuscular Volume 89.1 fl (78.0-98.0); Mean Platelet Volume 9.6 fL (7.4-10.4); Platelet Count 372 10x3/uL (130-400); RBC Distribution Width 14.3 % (11.5-14.5); Red Blood Cell (RBC) Count 4.49 mill/uL (4.20-5.40); White Blood Cell (WBC) Count 7.6 10x3/uL (4.8-10.8)
[2023-11-21] MEDS: HumuLIN 70/30 100 Unit/ml 10 ml Vial SC SCH (08:23)
[2023-11-21] MEDS: Famotidine/PF 20 mg/2ml Vial SLOW IVP SCH (08:24)
[2023-11-21 08:28] LABS: Anion Gap 13 mmol/L (10-20); BUN (Urea Nitrogen) 5 mg/dL (7.0-18.7); Calc. Creatinine Clearance 93 mL/min (70-130); Calcium 9.2 mg/dL (7.8-10.44); Carbon Dioxide 23 mmol/L (22-29); Chloride 101 mmol/L (98-107); Estimated GFR 106; Glucose 153 mg/dL (70-105); Potassium 3.3 mmol/L (3.5-5.1); Sodium 134 mmol/L (136-145)
[2023-11-21 08:29] LABS: Phosphorus 2.9 mg/dL (2.3-4.7)
[2023-11-21] MEDS ORDERED: Magnesium Oxide 400 MG TAB PO SCH (09:30)
[2023-11-21] MEDS ORDERED: Potassium Chloride 20 MEQ TAB PO SCH (09:30)
[2023-11-21 12:26] VITALS: BP 109/74; TEMP 98.6
[2023-11-22] MEDS ORDERED: Magnesium Oxide 400 MG TAB PO SCH (09:00)
== END 2023-11-21 15:44 | disposition home or self-care (01) | DRG 638 ==
LOC: ERS 11:54 → IMCU/EMU 14:24 → MSONC 11-20 15:50
PROVIDERS: ADMIT Internal Medicine; ATTEND Internal Medicine
PROC: 4A043R1 Measurement of Venous Saturation, Peripheral, Percutaneous Approach (ICD-10-PCS; principal; 2023-11-18)
DX: E10.10 Type 1 diabetes mellitus with ketoacidosis without coma (principal); E87.1 Hypo-osmolality and hyponatremia; E86.0 Dehydration; E10.43 Type 1 diabetes mellitus with diabetic autonomic (poly)neuropathy; K31.84 Gastroparesis; Z79.4 Long term (current) use of insulin; Z98.51 Tubal ligation status; F17.290 Nicotine dependence, other tobacco product, uncomplicated; Z79.899 Other long term (current) drug therapy; E87.6 Hypokalemia
CPT/HCPCS: 36415; 36416; 71045; 80048; 80053; 81001; 82010; 82805; 83690; 83735; 84100; 84484; 84703; 85025; 87040; 87077; 87086; 87149; 87186; 93005; 94760; 96361; 96365; 96366; 96372; 96375; J1630; J1815; J2405; J2765; J3475; J3480; J3490; J7050; J7999; S0028

== ENCOUNTER 2023-12-15 18:26 | Inpatient (IN) | payer SELFPAY ==
[2023-12-15] MEDS ORDERED: Ondansetron PF 4 MG/2 ML Vial ONE (19:01)
[2023-12-15 19:16] LABS: Hematocrit 53.5 % (36.0-47.0); Manual Diff?? YES; Mean Corpuscular HGB CONC 29.9 g/dL (32.0-36.0); Mean Corpuscular Hemoglobin 29.8 pg (27.0-31.0); Mean Corpuscular Volume 99.6 fl (78.0-98.0); Mean Platelet Volume 9.9 fL (7.4-10.4); Platelet Count 531 10x3/uL (130-400); RBC Distribution Width 13.7 % (11.5-14.5); Red Blood Cell (RBC) Count 5.37 mill/uL (4.20-5.40); White Blood Cell (WBC) Count 19.7 10x3/uL (4.8-10.8)
[2023-12-15 19:20] LABS: Delete Auto Diff?? YES
[2023-12-15 19:41] LABS: Critical Call Chem-Lactate NUR.LH8 @1940
[2023-12-15 19:53] LABS: Base Excess -28.3 mEq/L (-2.0 to +3.0); Calcium, Ionized (venous) 1.09 mmol/L (1.16-1.32); Chloride (VBG) 96 mmol/L (98-106); Hematocrit-VBG 48 % (36.0-47.0); Hemoglobin (Hb) 16.4 g/dL (11.7-15.5)
[2023-12-15 20:05] LABS: Band 9 % (5-11); Burr Cells SLIGHT = 2-5 cells HPF (0-1); CellaVision Operator ID LAB.KB; Hypochromia SLIGHT = 6-15 cells HPF (0-5); Lymphocytes 8 % (21-51); Macrocytosis SLIGHT = 6-15 cells HPF (0-5); Monocytes 4 % (0-10); Myelocyte 1 % (0-0); Neutrophil 78 % (42-75); Ovalocytes SLIGHT = 2-5 cells HPF (0-1); Platelet Adequacy Comment Platelets Increased; Polychromasia SLIGHT = 2-3 cells HPF (0-2); Smudge Cells 4.9 %; Total Cell Count 102
[2023-12-15 20:12] LABS: Bacteria/HPF None Seen HPF (None Seen); Bilirubin Negative (Negative); Blood, Urine Trace (Negative); CAUTI Indications for Culture Pelvic or flank pain; Clarity Clear (Clear); Glucose, Urine (Dipstick) Greater than 1000 mg/dL (Negative); Ketone, Urine Greater than 150 mg/dL (Negative); Leukocyte Negative Leu/uL (Negative); Nitrite Negative (Negative); Protein, Urine (Dipstick) 30 mg/dL (Neg-Trace); RBC/HPF 0-3 HPF (0-3); Squamous Epithelial 0-3 HPF (0-3); Urobilinogen Normal mg/dL (Less than 2); WBC/HPF 0-3 HPF (0-3)
[2023-12-15 20:13] LABS: Albumin 4.5 g/dL (3.5-5.0)
[2023-12-15 20:14] LABS: Pregnancy Test - Urine (BHCG) Negative (Negative); Pregu Control Background? CLEAR/WHITE (CLR/WHITE); Pregu Control Bar Appear? YES (CONTROL BAR)
[2023-12-15 20:15] LABS: Urine Culture Reflex No No
[2023-12-15 20:15] LABS: Calcium 9.2 mg/dL (7.8-10.44); Chloride 100 mmol/L (98-107); Potassium 5.8 mmol/L (3.5-5.1); Sodium 130 mmol/L (136-145)
[2023-12-15 20:16] LABS: Globulin 3.9 g/dL (2.4-3.5); Protein, Total 8.4 g/dL (6.0-8.3)
[2023-12-15] MEDS ORDERED: INSULIN REGULAR IN 0.9 % NACL 100 UNITS/100 ML BAG ONE (20:17)
[2023-12-15] MEDS ORDERED: Insulin Regular 300 UNITS/3 ML VIAL ONE (20:17)
[2023-12-15 20:18] LABS: Bilirubin, Total Less than 0.2 mg/dL (0.2-1.2)
[2023-12-15 20:18] LABS: Amphetamine Not Detected (NotDetected); Barbiturates Screen Not Detected (NotDetected); Benzodiazepine Screen Not Detected (NotDetected); Cocaine Metabolite Screen Not Detected (NotDetected); Methadone Not Detected (NotDetected); Methamphetamine Not Detected (NotDetected); Opiate Screen Not Detected (NotDetected); Oxycodone Screen Not Detected (NotDetected); Phencyclidine (PCP) Not Detected (NotDetected); THC/Cannabinoid Screen Not Detected (NotDetected); Tricyclic Screen Not Detected (NotDetected)
[2023-12-15 20:19] LABS: Alkaline Phosphatase 95 U/L (40-110); Calc. Creatinine Clearance 0 mL/min (70-130); Estimated GFR 35
[2023-12-15 20:20] LABS: BUN (Urea Nitrogen) 19 mg/dL (7.0-18.7)
[2023-12-15 20:21] LABS: AST (SGOT) 24 U/L (5-34)
[2023-12-15 20:22] LABS: ALT (SGPT) 22 U/L (8-55); Lipase 85 U/L (8-78)
[2023-12-15 20:24] LABS: Carbon Dioxide Less than 8 mmol/L (22-29); Critical Call Chemistry NUR.AC11 @2023; Glucose 602 mg/dL (70-105)
[2023-12-15 20:31] LABS: Acetaminophen Less than 10 mcg/mL (10.0-30.0); Alcohol Less than 10.0 mg/dL (Less than 10); Magnesium 2.5 mg/dL (1.6-2.6); Salicylate Less than 8.0 mg/dL (15.0-30.0)
[2023-12-15] MEDS ORDERED: Sodium Chloride 0.9% 1,000 ML IV PRN ×3 (20:50)
[2023-12-15] MEDS ORDERED: NS 0.9% w/ 20 MEQ KCL 1,000 ML IV PRN ×2 (20:50)
[2023-12-15] MEDS ORDERED: Dextrose 50% Abboject 50 ML SYRINGE SLOW IVP PRN (20:50)
[2023-12-15] MEDS ORDERED: Electrolyte Replacement Protocol 1 EACH FS PRN (20:50)
[2023-12-15] MEDS ORDERED: HUMULIN R 100 UNITS in Sodium Chloride 0.9% 100 ML IVPB SCH (21:00)
[2023-12-15] MEDS ORDERED: Ondansetron ODT 4 MG TAB PO PRN (21:11)
[2023-12-15 21:16] LABS: Analyzer IN Cardio ER; Base Excess (BEa) -25.9 mEq/L (-2.0 to +3.0); Calcium, Ionized (arterial) 1.26 mmol/L (1.12-1.30); Carboxyhemoglobin (COHb) 0.3 gm% (0.0-3.0); Hematocrit-ABG 43 % (36.0-47.0); Hemoglobin (Hb) 14.7 g/dL (12.0-16.0); O2 Tension (PaO2), arterial 130.5 mmHg (80.0-100.0); Potassium - ABG Lab 5.49 mmol/L (3.70-5.30)
[2023-12-15 21:37] LABS: Actual Bicarbonate (HCO3a) 3.5 mEq/L (22-28); CO2 Tension 14.2 mmHg (35.0-45.0); Puncture Site LBA
[2023-12-15 22:17] LABS: BUN (Urea Nitrogen) 18 mg/dL (7.0-18.7); Calc. Creatinine Clearance 0 mL/min (70-130); Calcium 8.4 mg/dL (7.8-10.44); Chloride 107 mmol/L (98-107); Estimated GFR 44; Magnesium 2.3 mg/dL (1.6-2.6); Potassium 5.5 mmol/L (3.5-5.1); Sodium 133 mmol/L (136-145)
[2023-12-15 22:20] LABS: Carbon Dioxide Less than 8 mmol/L (22-29); Critical Call Chemistry NUR.AC11@2219; Glucose 438 mg/dL (70-105)
[2023-12-15] MEDS ORDERED: Morphine 2 MG/ML VIAL ONE (22:38)
[2023-12-15] MEDS: Morphine 2 MG/ML VIAL SLOW IVP SCH (22:41)
[2023-12-15] MEDS: Metoclopramide HCl 10 MG (2 mL) VIAL IVP SCH (22:44)
[2023-12-15 22:49] VITALS: BMI 21.4
[2023-12-16 00:41] LABS: Lactic Acid 1.3 mmol/L (0.5-2.2)
[2023-12-16] MEDS: Sodium Chloride 0.9% 1,000 ML IV PRN (01:24)
[2023-12-16 02:03] LABS: BUN (Urea Nitrogen) 15 mg/dL (7.0-18.7); Calc. Creatinine Clearance 54 mL/min (70-130); Calcium 8.3 mg/dL (7.8-10.44); Chloride 110 mmol/L (98-107); Estimated GFR 55; Glucose 285 mg/dL (70-105); Sodium 131 mmol/L (136-145)
[2023-12-16 02:23] LABS: Carbon Dioxide Less than 8 mmol/L (22-29); Critical Call Chemistry NUR.MBS1@0223
[2023-12-16 02:59] LABS: Chloride (VBG) 128 mmol/L (98-106); Hematocrit-VBG 20 % (36.0-47.0); Hemoglobin (Hb) 6.9 g/dL (11.7-15.5); pH (venous) 7.242 (7.32-7.43)
[2023-12-16] MEDS: Dextrose 5 %-0.45 % NaCl 1,000 ML IV PRN (04:09)
[2023-12-16] MEDS: Acetaminophen 325 MG TAB PO PRN (04:53)
[2023-12-16 05:45] LABS: #Monocytes 2.1 thou/uL (0.11-0.59); #Neutrophils 11.2 thou/uL (1.40-6.50); %Basophils 0.2 % (0.0-1.0); %Monocytes 13.2 % (0.0-10.0); %Neutrophils 70.8 % (42.0-75.0); Mean Corpuscular HGB CONC 32.7 g/dL (32.0-36.0); Mean Platelet Volume 9.2 fL (7.4-10.4); RBC Distribution Width 13.7 % (11.5-14.5); Red Blood Cell (RBC) Count 3.67 mill/uL (4.20-5.40); White Blood Cell (WBC) Count 15.9 10x3/uL (4.8-10.8)
[2023-12-16] MEDS: Morphine 2 MG/ML VIAL SLOW IVP SCH (05:46)
[2023-12-16 05:52] LABS: Hematocrit 33.6 % (36.0-47.0); Mean Corpuscular Volume 91.6 fl (78.0-98.0); Platelet Count 313 10x3/uL (130-400)
[2023-12-16 07:03] LABS: Anion Gap 13 mmol/L (10-20); BUN (Urea Nitrogen) 9 mg/dL (7.0-18.7); Calc. Creatinine Clearance 84 mL/min (70-130); Calcium 7.5 mg/dL (7.8-10.44); Carbon Dioxide 12 mmol/L (22-29); Chloride 109 mmol/L (98-107); Estimated GFR 94; Glucose 225 mg/dL (70-105); Potassium 3.8 mmol/L (3.5-5.1); Sodium 130 mmol/L (136-145)
[2023-12-16] MEDS: D5 1/2 NS w/20 mEq KCL 1,000 ML IV PRN (07:46)
[2023-12-16] MEDS: Famotidine/PF 20 mg/2ml Vial SLOW IVP SCH (08:01)
[2023-12-16] MEDS: Ondansetron PF 4 MG/2 ML Vial IVP PRN (08:01)
[2023-12-16 09:27] LABS: Anion Gap 11 mmol/L (10-20); BUN (Urea Nitrogen) 7 mg/dL (7.0-18.7); Calc. Creatinine Clearance 83 mL/min (70-130); Calcium 7.3 mg/dL (7.8-10.44); Carbon Dioxide 14 mmol/L (22-29); Chloride 108 mmol/L (98-107); Estimated GFR 92; Glucose 263 mg/dL (70-105); Potassium 3.5 mmol/L (3.5-5.1); Sodium 129 mmol/L (136-145)
[2023-12-16] MEDS ORDERED: Glucagon 1 MG/ML KIT IM PRN (10:21)
[2023-12-16] MEDS: Potassium Chloride 20 MEQ TAB PO SCH (11:57)
[2023-12-16] MEDS: Famotidine 20 MG TAB PO SCH (12:01)
[2023-12-16 13:05] LABS: Hemoglobin A1c 11.6 % (4.0-6.0)
[2023-12-16 13:24] LABS: Anion Gap 7 mmol/L (10-20); BUN (Urea Nitrogen) 5 mg/dL (7.0-18.7); Calc. Creatinine Clearance 91 mL/min (70-130); Calcium 7.8 mg/dL (7.8-10.44); Carbon Dioxide 18 mmol/L (22-29); Chloride 109 mmol/L (98-107); Estimated GFR 104; Glucose 150 mg/dL (70-105); Potassium 3.6 mmol/L (3.5-5.1); Sodium 130 mmol/L (136-145)
[2023-12-16 14:12] LABS: pH, Arterial 7.007 (7.35-7.45)
[2023-12-16 14:13] LABS: Actual Bicarbonate (HCO3v) 4.4 mEq/L (22-28); pH (venous) 6.877 (7.32-7.43)
[2023-12-16] MEDS: Insulin Glargine 30 UNITS/0.3 ML VIAL SC SCH ×2 (14:28→20:06)
[2023-12-16] MEDS: Insulin Regular 300 UNITS/3 ML VIAL SC PRN (16:54)
[2023-12-17] MEDS: Sodium Chloride 0.65% Nasal 44 ML BOT EA NARE PRN (05:02)
[2023-12-17] MEDS: FLU VACC QS2023-24(6MOS UP)/PF 60 MCG/0.5 ML SYRINGE IM ONE (08:04)
[2023-12-17 08:56] LABS: #Neutrophils 4.9 thou/uL (1.40-6.50); %Basophils 0.5 % (0.0-1.0); %Eosinophils 0.1 % (0.0-10.0); %Lymphocytes 24.4 % (21.0-51.0); %Monocytes 12.4 % (0.0-10.0); %Neutrophils 62.2 % (42.0-75.0); Mean Corpuscular Hemoglobin 29.5 pg (27.0-31.0); Mean Corpuscular Volume 89.4 fl (78.0-98.0); Mean Platelet Volume 9.4 fL (7.4-10.4); Platelet Count 260 10x3/uL (130-400); RBC Distribution Width 13.9 % (11.5-14.5); Red Blood Cell (RBC) Count 4.98 mill/uL (4.20-5.40); White Blood Cell (WBC) Count 7.8 10x3/uL (4.8-10.8)
[2023-12-17 08:59] LABS: Anion Gap 12 mmol/L (10-20); BUN (Urea Nitrogen) Less than 4 mg/dL (7.0-18.7); Calc. Creatinine Clearance 95 mL/min (70-130); Calcium 8.7 mg/dL (7.8-10.44); Carbon Dioxide 19 mmol/L (22-29); Chloride 108 mmol/L (98-107); Estimated GFR 109; Glucose 105 mg/dL (70-105); Potassium 3.2 mmol/L (3.5-5.1); Sodium 136 mmol/L (136-145)
[2023-12-17 09:02] LABS: Hemoglobin 14.7 g/dL (12.0-16.0)
[2023-12-17 09:03] LABS: Hematocrit 44.5 % (36.0-47.0)
[2023-12-17 11:36] LABS: Actual Bicarbonate (HCO3v) 7.7 mEq/L (22-28); Potassium (VBG) 1.76 mmol/L (3.70-5.30)
[2023-12-17 11:37] LABS: Calcium, Ionized (venous) 0.61 mmol/L (1.16-1.32)
[2023-12-17] MEDS ORDERED: Dextrose 50% Abboject 50 ML SYRINGE IVP PRN (11:45)
[2023-12-17] MEDS ORDERED: Dextrose 5% in Water 1,000 ML IV PRN (11:45)
[2023-12-17] MEDS: Potassium Chloride 20 MEQ TAB PO SCH (11:58)
[2023-12-17 13:36] VITALS: BP 111/77; TEMP 98.8
== END 2023-12-17 13:24 | disposition home or self-care (01) | DRG 638 ==
LOC: ERS 18:26 → ERHOLD 20:52 → CCU 12-16 02:50 → T4-A 12-16 19:50
PROVIDERS: ADMIT Student in an Organized Health Care Education/Training Program; ATTEND Internal Medicine
PROC: 0T9B70Z Drainage of Bladder with Drainage Device, Via Natural or Artificial Opening (ICD-10-PCS; principal; 2023-12-15)
PROC: 4A033R1 Measurement of Arterial Saturation, Peripheral, Percutaneous Approach (ICD-10-PCS; 2023-12-15)
DX: E10.10 Type 1 diabetes mellitus with ketoacidosis without coma (principal); N17.9 Acute kidney failure, unspecified; Z79.4 Long term (current) use of insulin; Z98.51 Tubal ligation status; F17.290 Nicotine dependence, other tobacco product, uncomplicated; Z91.148 Patient's other noncompliance with medication regimen for other reason
CPT/HCPCS: 36415; 36416; 36600; 51702; 71045; 80048; 80053; 80306; 80307; 81001; 81025; 82010; 82805; 83036; 83605; 83690; 83735; 84100; 84145; 85025; 87040; 93005; 96361; 96365; 96366; 96375; 96376; J1815; J2272; J2405; J3480; J7030; J7042; J7050; S0028

== ENCOUNTER 2024-04-24 23:45 | Inpatient (IN) | payer OTHER ==
[2024-04-25] MEDS ORDERED: Metoclopramide HCl 10 MG (2 mL) VIAL ONE (00:12)
[2024-04-25] MEDS ORDERED: Ketorolac Tromethamine 30 MG (1 mL) VIAL ONE (00:12)
[2024-04-25] MEDS ORDERED: diphenhydrAMINE 50 MG/ML VIAL ONE (00:12)
[2024-04-25 00:24] LABS: #Basophils 0.11 10x3/uL (0.0-0.2); #Eosinphils Less than 0.03 10x3/uL (0.0-0.7); %Basophils 0.6 % (0.0-1.0); %Eosinophils 0.1 % (0.0-10.0); %Lymphocytes 9.7 % (21.0-51.0); %Monocytes 3.3 % (0.0-10.0); %Neutrophils 85.6 % (42.0-75.0); Hematocrit 45.8 % (36.0-47.0); Hemoglobin 13.9 g/dL (12.0-16.0); Mean Corpuscular HGB CONC 30.3 g/dL (32.0-36.0); Mean Corpuscular Hemoglobin 29.3 pg (27.0-31.0); Mean Corpuscular Volume 96.4 fL (78.0-98.0); Mean Platelet Volume 9.3 fL (7.4-10.4); Platelet Count 564 10x3/uL (130-400); RBC Distribution Width 15.6 % (11.5-14.5); Red Blood Cell (RBC) Count 4.75 mill/uL (4.20-5.40)
[2024-04-25 00:43] LABS: Phosphorus 4.4 mg/dL (2.3-4.7)
[2024-04-25 00:47] LABS: Troponin I Less than 0.010 ng/mL (< 0.028)
[2024-04-25 00:51] LABS: ALT (SGPT) 29 U/L (8-55); AST (SGOT) 32 U/L (5-34); Albumin 4.2 g/dL (3.5-5.0); Alkaline Phosphatase 90 U/L (40-110); BUN (Urea Nitrogen) 11 mg/dL (7.0-18.7); Bilirubin, Total 0.2 mg/dL (0.2-1.2); Calc. Creatinine Clearance 0 mL/min (70-130); Calcium 9.2 mg/dL (7.8-10.44); Carbon Dioxide Less than 8 mmol/L (22-29); Chloride 105 mmol/L (98-107); Estimated GFR 52; Globulin 4.1 g/dL (2.4-3.5); Glucose 427 mg/dL (70-105); Magnesium 2.2 mg/dL (1.6-2.6); Potassium 6.3 mmol/L (3.5-5.1); Protein, Total 8.3 g/dL (6.0-8.3); Sodium 129 mmol/L (136-145)
[2024-04-25 01:14] LABS: Base Excess -25.4 mEq/L (-2.0 to +3.0); Calcium, Ionized (venous) 1.18 mmol/L (1.16-1.32); Chloride (VBG) 101 mmol/L (98-106); Hematocrit-VBG 44 % (36.0-47.0); Hemoglobin (Hb) 15.1 g/dL (11.7-15.5); Sodium 134 mmol/L (133-146)
[2024-04-25 01:16] LABS: Actual Bicarbonate (HCO3v) 3.5 mEq/L (22-28)
[2024-04-25] MEDS ORDERED: Morphine 4 MG/ML VIAL SLOW IVP PRN (01:17)
[2024-04-25] MEDS ORDERED: Glucagon 1 MG/ML KIT IM PRN (01:30)
[2024-04-25] MEDS ORDERED: D5 1/2 NS w/20 mEq KCL 1,000 ML IV PRN (01:30)
[2024-04-25] MEDS ORDERED: Acetaminophen 325 MG TAB PO PRN (01:30)
[2024-04-25] MEDS ORDERED: Dextrose 50% Abboject 50 ML SYRINGE SLOW IVP PRN ×2 (01:30→02:00)
[2024-04-25] MEDS ORDERED: Electrolyte Replacement Protocol FS PRN (01:30)
[2024-04-25] MEDS ORDERED: Dextrose 5 %-0.45 % NaCl 1,000 ML IV PRN (01:30)
[2024-04-25] MEDS ORDERED: NS 0.9% w/ 20 MEQ KCL 1,000 ML/1,000 ML BAG IV PRN ×2 (01:30)
[2024-04-25] MEDS ORDERED: Ondansetron ODT 4 MG TAB SL PRN (01:30)
[2024-04-25] MEDS ORDERED: Sodium Chloride 0.9% 1,000 ML IV PRN ×8 (01:30→02:00)
[2024-04-25] MEDS ORDERED: Dextrose 5% in Water 1,000 ML IV PRN (01:30)
[2024-04-25] MEDS ORDERED: Insulin Reg, Human 100 UNITS in Sodium Chloride 0.9% 100 ML IVPB SCH ×2 (01:30→02:00)
[2024-04-25] MEDS ORDERED: Insulin Regular, Human 100 UNIT/ML 10 ML VIAL ONE (01:33)
[2024-04-25] MEDS ORDERED: LORazepam 2 MG/ML SYR.(CARPUJECT) ONE (01:33)
[2024-04-25] MEDS ORDERED: INSULIN REGULAR IN 0.9 % NACL 100 UNITS/100 ML BAG ONE (01:33)
[2024-04-25] MEDS ORDERED: Pantoprazole 40 MG VIAL ONE (01:33)
[2024-04-25 01:37] LABS: Lipase 21 U/L (8-78)
[2024-04-25] MEDS ORDERED: Acetaminophen 650 MG Suppository PR PRN (02:00)
[2024-04-25] MEDS ORDERED: NS 0.9% w/ 20 MEQ KCL 1,000 ML IV PRN ×2 (02:00)
[2024-04-25] MEDS ORDERED: Electrolyte Replacement Protocol 1 EACH IVPB PRN (02:00)
[2024-04-25 02:21] LABS: Bacteria/HPF None Seen HPF (None Seen); Bilirubin Negative (Negative); Blood, Urine Trace (Negative); CAUTI Indications for Culture Pelvic or flank pain; Clarity Clear (Clear); Glucose, Urine (Dipstick) Greater than 1000 mg/dL (Negative); Ketone, Urine Greater than 150 mg/dL (Negative); Leukocyte Negative Leu/uL (Negative); Nitrite Negative (Negative); Protein, Urine (Dipstick) 20 mg/dL (Neg-Trace); RBC/HPF 0-3 HPF (0-3); Specific Gravity, Urine 1.023 (1.002-1.036); Squamous Epithelial 0-3 HPF (0-3); Urobilinogen Normal mg/dL (Less than 2); WBC/HPF None Seen HPF (0-3)
[2024-04-25 02:22] LABS: Urine Culture Reflex No No
[2024-04-25] MEDS: Lactated Ringer's 1,000 ML IV SCH (03:24)
[2024-04-25 03:34] LABS: BUN (Urea Nitrogen) 13 mg/dL (7.0-18.7); Calc. Creatinine Clearance 0 mL/min (70-130); Calcium 9.2 mg/dL (7.8-10.44); Carbon Dioxide Less than 8 mmol/L (22-29); Chloride 105 mmol/L (98-107); Estimated GFR 42; Glucose 456 mg/dL (70-105); Potassium 6.7 mmol/L (3.5-5.1); Sodium 129 mmol/L (136-145)
[2024-04-25 03:35] VITALS: BMI 19.5
[2024-04-25] MEDS ORDERED: Sodium Bicarb 50 mEq/50 ML VIAL IVP SCH (04:15)
[2024-04-25 04:30] LABS: Base Excess -22.8 mEq/L (-2.0 to +3.0); Calcium, Ionized (venous) 1.25 mmol/L (1.16-1.32); Chloride (VBG) 109 mmol/L (98-106); Hematocrit-VBG 41 % (36.0-47.0); Hemoglobin (Hb) 13.8 g/dL (11.7-15.5); Potassium (VBG) 5.01 mmol/L (3.70-5.30); Sodium 141 mmol/L (133-146)
[2024-04-25] MEDS ORDERED: Albuterol 2.5 MG (3 mL) NEB NEB SCH (04:30)
[2024-04-25 04:31] LABS: pH (venous) 7.085 (7.32-7.43)
[2024-04-25 04:32] LABS: Actual Bicarbonate (HCO3v) 5.2 mEq/L (22-28)
[2024-04-25] MEDS: Dextrose 5 %-0.45 % NaCl 1,000 ML IV PRN (04:33)
[2024-04-25 04:40] LABS: Pregnancy Test - Urine (BHCG) Negative (Negative); Pregu Control Background? CLEAR/WHITE (CLR/WHITE); Pregu Control Bar Appear? YES (CONTROL BAR); Specific Gravity 1.023 (1.002-1.036)
[2024-04-25 05:23] LABS: Anion Gap 22 mmol/L (10-20); BUN (Urea Nitrogen) 12 mg/dL (7.0-18.7); Calc. Creatinine Clearance 51 mL/min (70-130); Calcium 8.3 mg/dL (7.8-10.44); Carbon Dioxide Less than 8 mmol/L (22-29); Chloride 114 mmol/L (98-107); Estimated GFR 59; Glucose 181 mg/dL (70-105); Potassium 4.8 mmol/L (3.5-5.1); Sodium 136 mmol/L (136-145)
[2024-04-25] MEDS: D5 1/2 NS w/20 mEq KCL 1,000 ML IV PRN (06:59)
[2024-04-25] MEDS: Ondansetron PF 4 MG/2 ML Vial IVP PRN (06:59)
[2024-04-25 09:24] LABS: Base Excess -19.5 mEq/L (-2.0 to +3.0); Calcium, Ionized (venous) 1.27 mmol/L (1.16-1.32); Chloride (VBG) 107 mmol/L (98-106); Hematocrit-VBG 39 % (36.0-47.0); Hemoglobin (Hb) 13.4 g/dL (11.7-15.5); Sodium 137 mmol/L (133-146)
[2024-04-25 09:28] LABS: Actual Bicarbonate (HCO3v) 7.5 mEq/L (22-28); pH (venous) 7.149 (7.32-7.43)
[2024-04-25] MEDS: Pantoprazole 40 MG VIAL IVP SCH (09:29)
[2024-04-25] MEDS: Enoxaparin 40 MG (0.4 mL) SYRINGE SC SCH (09:35)
[2024-04-25 09:55] LABS: Lactic Acid 1.1 mmol/L (0.5-2.2)
[2024-04-25 10:10] LABS: Anion Gap 20 mmol/L (10-20); BUN (Urea Nitrogen) 8 mg/dL (7.0-18.7); Calc. Creatinine Clearance 61 mL/min (70-130); Calcium 8.6 mg/dL (7.8-10.44); Carbon Dioxide Less than 8 mmol/L (22-29); Chloride 112 mmol/L (98-107); Estimated GFR 73; Glucose 173 mg/dL (70-105); Sodium 132 mmol/L (136-145)
[2024-04-25 14:50] LABS: Anion Gap 16 mmol/L (10-20); BUN (Urea Nitrogen) 5 mg/dL (7.0-18.7); Calc. Creatinine Clearance 72 mL/min (70-130); Calcium 8.6 mg/dL (7.8-10.44); Carbon Dioxide 8 mmol/L (22-29); Chloride 108 mmol/L (98-107); Estimated GFR 88; Glucose 189 mg/dL (70-105); Potassium 3.8 mmol/L (3.5-5.1); Sodium 128 mmol/L (136-145)
[2024-04-25] MEDS: D5 0.9% NS w/ 20 mEq KCl 1,000 ML IV SCH (17:18)
[2024-04-25] MEDS: INSULIN REGULAR IN 0.9 % NACL 100 UNITS in Premix 1 BAG IVPB SCH (17:19)
[2024-04-25 17:30] LABS: Calcium, Ionized (venous) 1.21 mmol/L (1.16-1.32); Chloride (VBG) 103 mmol/L (98-106); Hematocrit-VBG 38 % (36.0-47.0); Hemoglobin (Hb) 12.8 g/dL (11.7-15.5); Potassium (VBG) 3.72 mmol/L (3.70-5.30); Sodium 131 mmol/L (133-146); pH (venous) 7.308 (7.32-7.43)
[2024-04-25 17:43] LABS: Actual Bicarbonate (HCO3v) 12.6 mEq/L (22-28)
[2024-04-25 20:21] LABS: Sodium 129 mmol/L (136-145)
[2024-04-25 20:22] LABS: Carbon Dioxide 9 mmol/L (22-29); Chloride 114 mmol/L (98-107); Potassium 3.8 mmol/L (3.5-5.1)
[2024-04-25 20:23] LABS: Anion Gap 13 mmol/L (10-20); BUN (Urea Nitrogen) 44 mg/dL (7.0-18.7)
[2024-04-25 20:24] LABS: Calc. Creatinine Clearance 73 mL/min (70-130); Calcium 8.5 mg/dL (7.6-10.4); Estimated GFR 89; Glucose 150 mg/dL (70-105)
[2024-04-25 21:21] LABS: Anion Gap 12 mmol/L (10-20); BUN (Urea Nitrogen) 4 mg/dL (7.0-18.7); Calc. Creatinine Clearance 74 mL/min (70-130); Calcium 8.3 mg/dL (7.8-10.44); Carbon Dioxide 13 mmol/L (22-29); Chloride 109 mmol/L (98-107); Estimated GFR 90; Glucose 202 mg/dL (70-105); Potassium 3.3 mmol/L (3.5-5.1); Sodium 131 mmol/L (136-145)
[2024-04-25] MEDS: Potassium Chloride 20 MEQ TAB PO SCH (21:40)
[2024-04-26 04:40] LABS: Lactic Acid 1.1 mmol/L (0.5-2.2)
[2024-04-26 04:42] LABS: Anion Gap 11 mmol/L (10-20); BUN (Urea Nitrogen) Less than 4 mg/dL (7.0-18.7); Calc. Creatinine Clearance 87 mL/min (70-130); Calcium 8.2 mg/dL (7.8-10.44); Carbon Dioxide 13 mmol/L (22-29); Chloride 111 mmol/L (98-107); Estimated GFR 110; Glucose 162 mg/dL (70-105); Potassium 3.6 mmol/L (3.5-5.1); Sodium 131 mmol/L (136-145)
[2024-04-26 08:57] LABS: Anion Gap 10 mmol/L (10-20); BUN (Urea Nitrogen) Less than 4 mg/dL (7.0-18.7); Calc. Creatinine Clearance 94 mL/min (70-130); Carbon Dioxide 14 mmol/L (22-29); Chloride 113 mmol/L (98-107); Estimated GFR 107; Glucose 206 mg/dL (70-105); Potassium 3.6 mmol/L (3.5-5.1); Sodium 133 mmol/L (136-145)
[2024-04-26] MEDS ORDERED: Metoclopramide HCl 10 MG (2 mL) VIAL IVP PRN (09:25)
[2024-04-26] MEDS ORDERED: Sodium Chloride 0.9% 1,000 ML IV SCH (09:30)
[2024-04-26] MEDS: Sodium Chloride 0.45% 1,000 ML IV SCH (09:54)
[2024-04-26] MEDS: Insulin Glargine 30 UNITS/0.3 ML VIAL SC SCH (09:54)
[2024-04-26] MEDS ORDERED: Dextrose 5% in Water 1,000 ML IV PRN (13:03)
[2024-04-26] MEDS: Sodium Bicarbonate Tab 325 MG TAB PO SCH (14:18)
[2024-04-26] MEDS: Insulin Regular, Human 100 UNIT/ML 10 ML VIAL SC PRN (16:34)
[2024-04-27] MEDS: Insulin Glargine 30 UNITS/0.3 ML VIAL SC SCH (08:56)
[2024-04-27 09:46] VITALS: TEMP 98.4
[2024-04-27 10:55] LABS: #Basophils 0.04 10x3/uL (0.0-0.2); %Basophils 0.4 % (0.0-1.0); %Eosinophils 0.5 % (0.0-10.0); %Lymphocytes 24.5 % (21.0-51.0); %Monocytes 10.5 % (0.0-10.0); %Neutrophils 63.8 % (42.0-75.0); Hematocrit 39.5 % (36.0-47.0); Hemoglobin 13.2 g/dL (12.0-16.0); Mean Corpuscular HGB CONC 33.4 g/dL (32.0-36.0); Mean Corpuscular Hemoglobin 29.3 pg (27.0-31.0); Mean Corpuscular Volume 87.6 fL (78.0-98.0); Mean Platelet Volume 9.4 fL (7.4-10.4); Platelet Count 397 10x3/uL (130-400); RBC Distribution Width 15.2 % (11.5-14.5); Red Blood Cell (RBC) Count 4.51 mill/uL (4.20-5.40)
[2024-04-27 11:22] LABS: Anion Gap 14 mmol/L (10-20); BUN (Urea Nitrogen) 6 mg/dL (7.0-18.7); Calc. Creatinine Clearance 92 mL/min (70-130); Calcium 8.7 mg/dL (7.8-10.44); Carbon Dioxide 20 mmol/L (22-29); Chloride 102 mmol/L (98-107); Estimated GFR 103; Glucose 355 mg/dL (70-105); Potassium 3.7 mmol/L (3.5-5.1); Sodium 132 mmol/L (136-145)
[2024-04-27 14:36] VITALS: BP 120/70
== END 2024-04-27 13:29 | disposition home or self-care (01) | DRG 638 ==
LOC: ERS 23:45 → IMCU/EMU 04-25 01:14 → T4-B 04-26 11:53
PROVIDERS: ADMIT Student in an Organized Health Care Education/Training Program; ATTEND Internal Medicine
DX: E10.10 Type 1 diabetes mellitus with ketoacidosis without coma (principal); K92.0 Hematemesis; Z98.51 Tubal ligation status; E10.43 Type 1 diabetes mellitus with diabetic autonomic (poly)neuropathy; Z79.4 Long term (current) use of insulin; K31.84 Gastroparesis; Z79.899 Other long term (current) drug therapy; E87.5 Hyperkalemia; D72.829 Elevated white blood cell count, unspecified
CPT/HCPCS: 36415; 36416; 71045; 80048; 80053; 81001; 81025; 82010; 82805; 83605; 83690; 83735; 84100; 84484; 85025; 87040; 87086; 93005; 96365; 96366; 96367; 96375; C9113; J1200; J1815; J1885; J2060; J2405; J2765; J3480; J7042

== ENCOUNTER 2024-12-14 17:24 | Inpatient (IN) | payer OTHER ==
[2024-12-14 18:08] LABS: #Basophils 0.15 10x3/uL (0.0-0.2); %Basophils 0.6 % (0.0-1.0); %Eosinophils 0.1 % (0.0-10.0); %Lymphocytes 9.8 % (21.0-51.0); %Monocytes 3.7 % (0.0-10.0); Hematocrit 46.8 % (36.0-47.0); Hemoglobin 14.6 g/dL (12.0-16.0); Mean Corpuscular HGB CONC 31.2 g/dL (32.0-36.0); Mean Corpuscular Hemoglobin 29.1 pg (27.0-31.0); Mean Corpuscular Volume 93.4 fL (78.0-98.0); Mean Platelet Volume 9.1 fL (7.4-10.4); Platelet Count 624 10x3/uL (130-400); RBC Distribution Width 13.7 % (11.5-14.5); Red Blood Cell (RBC) Count 5.01 mill/uL (4.20-5.40)
[2024-12-14] MEDS ORDERED: Ondansetron PF 4 MG/2 ML Vial ONE ×3 (18:10→22:09)
[2024-12-14 18:12] LABS: BHCG - Serum Negative (NEGATIVE); Pregs Control Background? CLEAR/WHITE (CLR/WHITE); Pregs Control Bar Appear? YES (CONTROL BAR)
[2024-12-14 18:19] LABS: Phosphorus 6.2 mg/dL (2.5-4.5)
[2024-12-14 18:28] LABS: Troponin I Less than 0.010 ng/mL (< 0.028)
[2024-12-14 18:34] LABS: ALT (SGPT) 16 U/L (Less than 34); AST (SGOT) 39 U/L (11-34); Albumin 4.5 g/dL (3.1-4.5); Alkaline Phosphatase 122 U/L (40-110); Anion Gap 31 mmol/L (10-20); BUN (Urea Nitrogen) 14 mg/dL (7.0-18.7); Bilirubin, Total 0.3 mg/dL (0.3-1.2); Calc. Creatinine Clearance 0 mL/min (70-130); Calcium 10.3 mg/dL (7.8-10.44); Carbon Dioxide Less than 8 mmol/L (22-29); Chloride 100 mmol/L (98-107); Estimated GFR 74; Globulin 4.8 g/dL (2.4-3.5); Glucose 626 mg/dL (70-105); Lipase 16 U/L (8-78); Magnesium 2.4 mg/dL (1.6-2.6); Potassium 5.5 mmol/L (3.5-5.1); Protein, Total 9.3 g/dL (6.0-8.3); Sodium 131 mmol/L (136-145)
[2024-12-14] MEDS ORDERED: Morphine 4 MG/ML VIAL ONE ×2 (18:39→20:36)
[2024-12-14] MEDS ORDERED: INSULIN REGULAR IN 0.9 % NACL 100 ML ONE (18:39)
[2024-12-14 19:12] LABS: Base Excess -23.9 mEq/L (-2.0 to +3.0); Hematocrit-VBG 43 % (36.0-47.0); Hemoglobin (Hb) 14.6 g/dL (11.7-15.5); Potassium (VBG) 5.95 mmol/L (3.70-5.30); Sodium 137 mmol/L (133-146)
[2024-12-14 19:15] LABS: pH (venous) 7.023 (7.32-7.43)
[2024-12-14 19:16] LABS: Actual Bicarbonate (HCO3v) 5.5 mEq/L (22-28)
[2024-12-14] MEDS ORDERED: Dextrose 5 %-0.45 % NaCl 1,000 ML IV PRN (21:00)
[2024-12-14] MEDS ORDERED: Sodium Chloride 0.9% 1,000 ML IV PRN ×4 (21:00)
[2024-12-14] MEDS ORDERED: INSULIN REGULAR IN 0.9 % NACL 100 ML IVPB SCH (21:00)
[2024-12-14] MEDS ORDERED: NS 0.9% w/ 20 MEQ KCL 1,000 ML IV PRN ×2 (21:00)
[2024-12-14] MEDS ORDERED: Electrolyte Replacement Protocol IVPB SCH (21:00)
[2024-12-14] MEDS: Famotidine 20 MG TAB PO SCH (22:39)
[2024-12-14 23:29] VITALS: BMI 23.4
[2024-12-14] MEDS: Promethazine HCl 12.5 MG in Sodium Chloride 0.9% 50 ML IVPB SCH (23:35)
[2024-12-14 23:47] LABS: Anion Gap 23 mmol/L (10-20); BUN (Urea Nitrogen) 13 mg/dL (7.0-18.7); Calc. Creatinine Clearance 89 mL/min (70-130); Calcium 9.3 mg/dL (7.8-10.44); Carbon Dioxide Less than 8 mmol/L (22-29); Chloride 113 mmol/L (98-107); Estimated GFR 88; Glucose 189 mg/dL (70-105); Potassium 4.6 mmol/L (3.5-5.1); Sodium 138 mmol/L (136-145)
[2024-12-15] MEDS: Dextrose 50% Abboject 50 ML SYRINGE SLOW IVP PRN (00:40)
[2024-12-15] MEDS: D5 1/2 NS w/20 mEq KCL 1,000 ML IV PRN (00:50)
[2024-12-15 01:26] LABS: Anion Gap 18 mmol/L (10-20); BUN (Urea Nitrogen) 11 mg/dL (7.0-18.7); Calc. Creatinine Clearance 99 mL/min (70-130); Calcium 8.6 mg/dL (7.8-10.44); Carbon Dioxide 11 mmol/L (22-29); Chloride 111 mmol/L (98-107); Estimated GFR 99; Glucose 226 mg/dL (70-105); Potassium 4.7 mmol/L (3.5-5.1); Sodium 135 mmol/L (136-145)
[2024-12-15 01:50] LABS: Bacteria/HPF None Seen HPF (None Seen); Bilirubin Negative (Negative); Blood, Urine 1+ (Negative); Clarity Clear (Clear); Glucose, Urine (Dipstick) Greater than 1000 mg/dL (Negative); Ketone, Urine Greater than 150 mg/dL (Negative); Leukocyte Negative Leu/uL (Negative); Nitrite Negative (Negative); Protein, Urine (Dipstick) 30 mg/dL (Neg-Trace); RBC/HPF 0-3 HPF (0-3); Squamous Epithelial 0-3 HPF (0-3); Urobilinogen Normal mg/dL (Less than 2); WBC/HPF 0-3 HPF (0-3); Yeast-Budding Rare HPF (None Seen)
[2024-12-15 05:41] LABS: Hematocrit 35.8 % (36.0-47.0); Hemoglobin 11.7 g/dL (12.0-16.0); Hemoglobin A1c 10.1 % (4.0-6.0); Mean Corpuscular HGB CONC 32.7 g/dL (32.0-36.0); Mean Corpuscular Hemoglobin 29.4 pg (27.0-31.0); Mean Corpuscular Volume 89.9 fL (78.0-98.0); Platelet Count 489 10x3/uL (130-400); RBC Distribution Width 13.7 % (11.5-14.5); Red Blood Cell (RBC) Count 3.98 mill/uL (4.20-5.40)
[2024-12-15 05:55] LABS: Anion Gap 11 mmol/L (10-20); BUN (Urea Nitrogen) 8 mg/dL (7.0-18.7); Calc. Creatinine Clearance 113 mL/min (70-130); Calcium 8.2 mg/dL (7.8-10.44); Carbon Dioxide 13 mmol/L (22-29); Chloride 110 mmol/L (98-107); Estimated GFR 115; Glucose 160 mg/dL (70-105); Magnesium 1.7 mg/dL (1.6-2.6); Sodium 130 mmol/L (136-145)
[2024-12-15 06:03] LABS: Phosphorus 2.4 mg/dL (2.5-4.5)
[2024-12-15 06:31] LABS: Anion Gap 13 mmol/L (10-20); BUN (Urea Nitrogen) 9 mg/dL (7.0-18.7); Calc. Creatinine Clearance 120 mL/min (70-130); Calcium 8.4 mg/dL (7.8-10.44); Carbon Dioxide 11 mmol/L (22-29); Chloride 110 mmol/L (98-107); Estimated GFR 116; Glucose 148 mg/dL (70-105); Potassium 4.3 mmol/L (3.5-5.1); Sodium 130 mmol/L (136-145)
[2024-12-15] MEDS: Magnesium 2 GM/50 ML(in water) 2 GM in Premix 1 BAG IVPB SCH (06:35)
[2024-12-15 07:27] LABS: Anisocytosis SLIGHT = 6-15 cells HPF (0-5); Band 8 % (5-11); Large Platelets 1.9 % (0-5); Lymphocytes 10 % (21-51); Macrocytosis SLIGHT = 6-15 cells HPF (0-5); Monocytes 3 % (0-10); Neutrophil 80 % (42-75); Platelet Adequacy Comment Platelets Normal; Polychromasia SLIGHT = 2-3 cells HPF (0-2); Smudge Cells 8.7 %
[2024-12-15] MEDS: Acetaminophen 325 MG TAB PO PRN (07:30)
[2024-12-15] MEDS: Enoxaparin 40 MG (0.4 mL) SYRINGE SC SCH (07:30)
[2024-12-15] MEDS: Sodium Bicarb 50 MEQ/50 ML Abboject 8.4% SYRINGE ONE (11:44)
[2024-12-15 15:07] LABS: Anion Gap 10 mmol/L (10-20); BUN (Urea Nitrogen) 4 mg/dL (7.0-18.7); Calc. Creatinine Clearance 124 mL/min (70-130); Calcium 8.5 mg/dL (7.8-10.44); Carbon Dioxide 16 mmol/L (22-29); Chloride 111 mmol/L (98-107); Estimated GFR 117; Glucose 167 mg/dL (70-105); Potassium 3.7 mmol/L (3.5-5.1); Sodium 133 mmol/L (136-145)
[2024-12-15] MEDS ORDERED: Dextrose 50% Abboject 50 ML SYRINGE SLOW IVP PRN (16:15)
[2024-12-15] MEDS ORDERED: Dextrose 5% in Water 1,000 ML IV PRN (16:15)
[2024-12-15] MEDS ORDERED: Glucagon 1 MG/ML KIT IM PRN (16:15)
[2024-12-15] MEDS: Insulin Glargine 30 UNITS/0.3 ML VIAL SC SCH (16:39)
[2024-12-15] MEDS: Ondansetron PF 4 MG/2 ML Vial IVP PRN (19:35)
[2024-12-15] MEDS: Insulin Regular, Human 100 UNIT/ML 10 ML VIAL SC PRN (20:38)
[2024-12-15 22:38] LABS: Anion Gap 18 mmol/L (10-20); BUN (Urea Nitrogen) 5 mg/dL (7.0-18.7); Calc. Creatinine Clearance 86 mL/min (70-130); Calcium 8.6 mg/dL (7.8-10.44); Carbon Dioxide 13 mmol/L (22-29); Chloride 104 mmol/L (98-107); Estimated GFR 84; Glucose 347 mg/dL (70-105); Potassium 3.8 mmol/L (3.5-5.1); Sodium 131 mmol/L (136-145)
[2024-12-15] MEDS ORDERED: Insulin Regular, Human 100 UNIT/ML 10 ML VIAL IVP SCH (23:45)
[2024-12-16] MEDS: hydrOXYzine 25 MG TAB PO PRN
[2024-12-16] MEDS: Sodium Chloride 0.9% 500 ML IV SCH
[2024-12-16 03:55] LABS: #Basophils 0.06 10x3/uL (0.0-0.2); %Basophils 0.5 % (0.0-1.0); %Eosinophils 0.4 % (0.0-10.0); %Lymphocytes 27.9 % (21.0-51.0); %Neutrophils 64.8 % (42.0-75.0); Hematocrit 34.9 % (36.0-47.0); Hemoglobin 11.7 g/dL (12.0-16.0); Mean Corpuscular HGB CONC 33.5 g/dL (32.0-36.0); Mean Corpuscular Hemoglobin 29.4 pg (27.0-31.0); Mean Corpuscular Volume 87.7 fL (78.0-98.0); Mean Platelet Volume 8.7 fL (7.4-10.4); Platelet Count 425 10x3/uL (130-400); Red Blood Cell (RBC) Count 3.98 mill/uL (4.20-5.40)
[2024-12-16 04:08] LABS: Phosphorus 2.5 mg/dL (2.5-4.5)
[2024-12-16 04:13] LABS: Anion Gap 10 mmol/L (10-20); BUN (Urea Nitrogen) 4 mg/dL (7.0-18.7); Calc. Creatinine Clearance 130 mL/min (70-130); Calcium 8.5 mg/dL (7.8-10.44); Carbon Dioxide 20 mmol/L (22-29); Chloride 111 mmol/L (98-107); Estimated GFR 118; Glucose 42 mg/dL (70-105); Magnesium 1.9 mg/dL (1.6-2.6); Potassium 3.1 mmol/L (3.5-5.1); Sodium 138 mmol/L (136-145)
[2024-12-16 07:45] VITALS: TEMP 97.4
[2024-12-16] MEDS: Insulin Glargine 30 UNITS/0.3 ML VIAL SC SCH (08:21)
[2024-12-16] MEDS: Potassium Chloride 20 MEQ TAB PO SCH (08:21)
[2024-12-16] MEDS: Magnesium 2 GM/50 ML(in water) 2 GM in Premix 1 BAG IVPB SCH (08:21)
== END 2024-12-16 11:44 | disposition home or self-care (01) | DRG 638 ==
LOC: ERS 17:24 → IMCU/EMU 20:01
PROVIDERS: ADMIT Internal Medicine; ATTEND Family Medicine
DX: E10.10 Type 1 diabetes mellitus with ketoacidosis without coma (principal); E87.1 Hypo-osmolality and hyponatremia; N17.9 Acute kidney failure, unspecified; E10.43 Type 1 diabetes mellitus with diabetic autonomic (poly)neuropathy; K31.84 Gastroparesis; G43.909 Migraine, unspecified, not intractable, without status migrainosus; D72.829 Elevated white blood cell count, unspecified; Z87.891 Personal history of nicotine dependence; F12.10 Cannabis abuse, uncomplicated; E87.5 Hyperkalemia
CPT/HCPCS: 36415; 36416; 71045; 80048; 80053; 81001; 82010; 82805; 83036; 83690; 83735; 84100; 84484; 84703; 85025; 87428; 93005; J1650; J1815; J2270; J2405; J2550; J3475; J3480; J7030; J7999